=== PATIENT | male | born 1980 | race Caucasian/White ===

== ENCOUNTER 2020-12-04 17:39 | Inpatient (IN) | payer OTHER ==
[~2020-12-04] VITALS: Ht 182.9 cm; Wt 138.1 kg
--- NOTE | ~2020-12-04 | EMS ---
[facility] [address] [place] [address] EMS Patient Care Report Name: ROSS JOHNSON Room #: 243-P ADM IN M.R.#: [id number] Admission: 12/04/20 Attend Phys: Jose Lombardo MD Discharge: Date of : 76 Report #: [id number] THIS REPORT FOR: //name// Report Transmitted: 12/05/2020 06:49 EMS Care Summary [facility] MED-ACT Incident [id number] @ 12/04/2020 16:54 Incident Location [address] [place] [address] Patient ROSS JOHNSON Male, 40 Years 1980 Patient Address [address] [place] [address] Patient History Tracheostomy,Ventilator dependent,Novel Coronavirus (COVID-19), Patient Allergies No known allergies, Patient Medications Heparin, Morphine, Ativan, Chief Complaint Acute dyspena Disposition Transported No Lights/[place] Reason Breathing Problem Transported To [facility] Narrative Dispatched code one on a difficulty breathing. Arrived to meet doctor in hallway who began to give report but got irritated with medic before walking off and not finishing hand off or answering all of medics questions. ATF Pt [facility] [address] [place] [address] EMS Patient Care Report Name: ROSS JOHNSON Room #: 243-P [facility] IN Aarti#: [id number] Admission: 12/04/20 Attend Phys: Jose Lombardo MD Discharge: Date of : 76 Report #: [id number] laying supine in bed, on a ventilator via trach and obviously still struggling to breathe (very sweaty, breathing very fast despite the ventilator, rapid and shallow expiration with prolonged inspiration phase). Pt skin color was appropriate for race/warm/sweaty (no signs of cyanosis in face or hands), Pt is non verbal but could mouth words and make hand signs, appeared to be A&Ox4, answering questions appropriately. Staff affirm; About an hour before calling 911 Pt began to have acute SOB with a sudden onset. He had been off the vent for four days but they put him back on it for this acute episode. He has his own raspatory drive but the ventilator is assisting him and making him more comfortable. His condition is due to COVID which he contracted in September, this caused him to have a trach placed and be ventilated. He has not completely recovered and is at the facility for rehab. Otherwise no significant Hx was reported. Pt denies c/p or any cardiac Hx. Pt was sheet lifted onto stretcher where he was buckled in. He was then switched to a BVM and EMS O2 before being brought to MICU. Pt was transported with three medics in the back, fire trailer tank truck driver. In route Pt remained stable but was obviously getting tired and loosing raspatory drive. Treatments and assessments performed in route, vital signs did not significantly improved but did not decline either. Upon arrival Pt was still breathing spontaneously but was being assisted more then the start of the encounter. Care was transferred to doctor and Pt was left in ED receiving additional care. Initial Vitals @17:15P: 146, @17:35P: 149,R: 46,BP: 115/86,EtCO2: 23,SpO2: 84, @17:25P: 144,R: 41,BP: 165/90,Temp: 98.2F,EtCO2: 27,SpO2: 86, @17:12P: 150,R: 38,BP: 154/104,Pain: 0/10,GCS: 15,Revised Trauma: 11, Impression Acute Respiratory Distress (Dyspnea) Procedures @17:1512-Lead ECGSucceeded@17:20Manual Airway Response: Unchanged@17:20Oxygen FlowRate: 25 Device: Bag Valve Mask (BVM) Response: UnchangedSucceeded@17:30Normal Saline (.9% NaCl) 10cc (20 ga) Site: Antecubital-LeftResponse: UnchangedSucceeded@17:03Normal Saline (.9% NaCl) 0cc () Site: Other Central (PICC, Portacath, Not Listed)Response: Unchanged Timeline 16:52,Call Received 16:52,Psap Call 16:54,Dispatched 16:55,En Route 17:01,On Scene 17:02,[place] [address] EMS Patient Care Report Name: ROSS JOHNSON Room #: 243-P ADM IN M.R.#: [id number] Admission: 12/04/20 Attend Phys: Jose Lombardo MD Discharge: Date of : 76 Report #: [id number] 17:03,Normal Saline (.9% NaCl) 0cc Site: Other Central (PICC, Portacath, Not Listed),Response: Unchanged 17:12,BP: 154/104 M,PULSE: 150,RR: 38 R,SPO2: Ox,ETCO2: ,BG: ,PAIN: 0,GCS: 15, 17:15,12-Lead ECG,Succeeded, 17:15,BP: / M,PULSE: 146,RR: R,SPO2: Ox,ETCO2: ,BG: ,PAIN: ,GCS: , 17:20,Manual Airway Response: Unchanged 17:20,Oxygen FlowRate: 25 Device: Bag Valve Mask (BVM) Response: UnchangedSucceeded, 17:25,BP: 165/90 M,PULSE: 144,RR: 41 R,SPO2: 86 Ox,ETCO2: 27 ,BG: ,PAIN: ,GCS: , 17:25,Depart Scene 17:30,Normal Saline (.9% NaCl) 10cc 20 ga Site: Antecubital-Left,Response: UnchangedSucceeded, 17:35,BP: 115/86 M,PULSE: 149,RR: 46 R,SPO2: 84 Ox,ETCO2: 23 ,BG: ,PAIN: ,GCS: , 17:36,At Destination 18:10,Call Closed Disclaimer v1.1 Copyright 2020 [employer] This EMS Care Summary contains data elements from the applicable legal record (which may be displayed differently). It is designed to provide pertinent information for the following purposes: continuity of care, clinical quality, and state data reporting. The complete legal record is available to ED staff and administrators of the receiving hospital in [address] Patient Tracker. All data is provided "as is."
[2020-12-04 17:42] VITALS: BP 121/71
[2020-12-04 18:11] LABS: BE(vivo) -0.4 mmol/L (-2 to +3); HCO3 25.2 mmol/L (22.0-26.0); PCO2 44.6 mmHg (35.0-45.0); PO2 59.7 mmHg (80.0-100.0); sO2 90.1 % (92.0-98.0)
[2020-12-04 18:16] LABS: HEMATOCRIT 43.3 % (42.0-52.0); HEMOGLOBIN 14.2 gm/dL (14.0-18.0); MCH 29.6 pg (26.0-34.0); MCHC 32.9 g/dL (28.0-37.0); PLATELET COUNT 349 thou/uL (150-400); RBC 4.81 mil/uL (4.50-6.00); RDW 16.4 % (10.5-14.5); WBC 21.6 thou/uL (4.0-11.0)
[2020-12-04 18:29] LABS: CALCIUM 9.4 mg/dL (8.5-10.1); CREATININE 0.7 mg/dL (0.7-1.3); POTASSIUM 4.5 mmol/L (3.5-5.1)
[2020-12-04 18:40] LABS: ABSOLUTE NEUTROPHILS 18.1 thou/uL (1.4-8.2)
[2020-12-04 18:41] LABS: ANISOCYTOSIS 1+
[2020-12-04 18:55] LABS: APTT 30.9 Seconds (24.5-32.8); INR 1.1; PROTIME 11.4 Seconds (9.3-11.4)
[2020-12-04 21:19] LABS: BE(vivo) 0.3 mmol/L (-2 to +3); HCO3 24.5 mmol/L (22.0-26.0); PCO2 38.3 mmHg (35.0-45.0); PO2 58.8 mmHg (80.0-100.0); pH 7.424 (7.360-7.450); sO2 91.2 % (92.0-98.0)
[2020-12-04 21:49] VITALS: BP 139/89
--- NOTE | 2020-12-04 23:00 | NUR ---
MOTHER CONTACTED AT 2114, INFORMED ABOUT IR PROCEDURE.
[2020-12-04 23:56] VITALS: BP 134/96
[2020-12-05] VITALS (54 sets, daily range): BP systolic 100–148; BP diastolic 66–98
[2020-12-05 01:46] LABS: HEMOGLOBIN 12.2 gm/dL (14.0-18.0); MCHC 31.2 g/dL (28.0-37.0); MCV 89.7 fL (80.0-100.0); RBC 4.35 mil/uL (4.50-6.00); RDW 16.5 % (10.5-14.5); WBC 20.8 thou/uL (4.0-11.0)
[2020-12-05 01:52] LABS: INR 1.16; PROTIME 12.6 Seconds (10.5-12.1)
[2020-12-05 01:53] LABS: ALBUMIN 2.8 g/dL (3.4-5.0); CALCIUM 8.5 mg/dL (8.5-10.1); CREATININE 0.5 mg/dL (0.7-1.3); TOTAL BILIRUBIN 0.8 mg/dL (0.2-1.0); TOTAL PROTEIN 6.8 g/dL (6.4-8.2)
[2020-12-05] MEDS ORDERED: MELATONIN5 M1 PER TUBE (02:08)
[2020-12-05] MEDS ORDERED: REGLAN 10 MG TA10 MG PO (02:08)
[2020-12-05] MEDS ORDERED: ROXICODONE5 MG PO (02:10)
[2020-12-05] MEDS ORDERED: LORAZEPAM 0.50.5 MG PO (02:14)
[2020-12-05] MEDS ORDERED: LIDOCAINE PAIN1 EACH TOP (02:15)
[2020-12-05] MEDS ORDERED: METOPROLOL TA37.5 MG PER TUBE (02:16)
[2020-12-05] MEDS ORDERED: FAMOTIDINE 20 M20 MG PER TUBE (02:17)
[2020-12-05] MEDS ORDERED: HEPARIN SO5000 UNIT2 SUBQ (02:18)
[2020-12-05] MEDS ORDERED: LEVEMIR100 UNIT/2 SUBQ (02:19)
[2020-12-05] MEDS ORDERED: DIAZEPAM 5 MG5 M1 PER TUBE (02:51)
[2020-12-05 04:57] LABS: BE(vivo) 1.3 mmol/L (-2 to +3); HCO3 25.5 mmol/L (22.0-26.0); PO2 95.8 mmHg (80.0-100.0); pH 7.434 (7.360-7.450); sO2 97.5 % (92.0-98.0)
--- NOTE | 2020-12-05 06:40 | NUR ---
RECEIVED REPORT FROM GARCIA IN IR AT 9335; PT ARRIVED TO UNIT APPRX 1936. PT A&Ox4, ABLE TO MOUTH WORDS ON VENT VIA TRACH, FREQ COUGH W/LIGHT PINK/CLEAR SECRETIONS, ABLE TO SUCTION MOUTH HIMSELF, MOSTLY DECLINES TO BE IN-LINE SUCTIONED. ST IN 130'S GAVE PRN LOPRESSOR. GAVE VALIUM AND TYLENOL VIA PEG FOR ANXIETY/COMFORT. LEFT GROIN SITE CLOSED W/SUTURES AND GAUZE/CLEAR DRESSING; IR TO REMOVE SUTURES ON MONDAY. IVF AND HEPARIN GTT INFUSING; NEXT APTT DUE AT 1000. NO OTHER CONCERNS.
--- NOTE | 2020-12-05 09:48 | EKG ---
[place] [address] [facility] [place] [address] ELECTROCARDIOGRAM REPORT Name: ROSS JOHNSON Room #: 243-P ADM IN M.R.#: [id number] Admission: 12/04/20 Attend Phys: Jose Lombardo MD Discharge: Date of : 76 Report #: [id number] [facility] ED Test Date: 2020-12-04 Test Time: 17:53:06 Pat Name: ROSS JOHNSON Department: Room: 243 Gender: M Special Certificate Dictator: MARKUS : 1980 Requested By: Aury Tovar Order Number: [id number] MD: Oren Victor Measurements Intervals [place] Rate: 145 P: 52 OH: 123 QRS: 60 QRSD: 85 T: -36 QT: 283 QTc: 440 Interpretive Statements Sinus tachycardia Probable left atrial enlargement Nonspecific T abnormalities, inferior leads Borderline ST elevation, anterior leads Artifact in lead(s) I,II,aVR No previous ECG available for comparison Electronically Signed On 12-05-2020 9:47:48 CDT by Oren Victor [email or web address] <ELECTRONICALLY SIGNED> By: Oren Victor MD, [facility] 12/05/20 0947 52 52 Oren Victor MD, FACC /EPI
--- NOTE | 2020-12-05 10:38 | NUR ---
PHYSICAL THERAPY SAYS PT NOT APPROPRIATE FOR OT AT THIS TIME. NO EVAL COMPLETED
--- NOTE | 2020-12-05 19:50 | NUR ---
THIS RN SPOKE TO THE PT'S MOTHER TONO SORTO FROM 912 - 914. SHE WAS UPDATED ON THE PT'S CONDITIONS AND PLAN OF CARE. PT IS NOT PROGRESSING TOWARDS PLAN OF CARE EVIDENCED BY CONTINUED NEED OF VENTILATION FOR OXYGEN SUPPORT. HEPARIN DRIP TO CONTINUE PT'S PLAN OF CARE IS TO CONTINUE NURSING SUPPORT
[2020-12-05 20:44] LABS: URINE BILIRUBIN NEGATIVE (Negative); URINE BLOOD 3+ (Negative); URINE CLARITY SL CLOUDY; URINE COLOR YELLOW; URINE GLUCOSE-RANDOM* NEGATIVE (Negative); URINE KETONES NEGATIVE (Negative); URINE LEUKOCYTES NEGATIVE (Negative); URINE NITRITE NEGATIVE (Negative); URINE PROTEIN (DIPSTICK) NEGATIVE (Negative); URINE SPECIFIC GRAVITY 1.025 (1.005-1.035); URINE UROBILINOGEN 0.2 E.U./dl (0.2-1.0)
[2020-12-05 21:09] LABS: CASTS None Seen /LPF (None Seen); SQUAMOUS 0-3 Few /LPF (0-3); URINE RBC >20 Many /HPF (NONE SEEN); URINE WBC None Seen /HPF (NONE SEEN)
[2020-12-05 21:10] LABS: AMORPHOUS URATES Many /LPF (None Seen); BACTERIA None Seen /HPF (None Seen)
[2020-12-06] VITALS (20 sets, daily range): BP systolic 108–136; BP diastolic 68–85
[2020-12-06 05:36] LABS: GLYCOHEMOGLOBIN (HGB A1C) 6.2 % (4.8-5.6)
--- NOTE | 2020-12-06 06:30 | HC ---
[facility] [place] [address] [place] [address] CONSULTATION Name: ROSS JOHNSON Room #: 243- ADM IN M.R.#: [id number] Admission: 12/04/20 Attend Phys: Jose Lombardo MD Discharge: Date of : 76 Report #: [id number] THIS REPORT FOR: cc: Eduard Landa MD, Christopher B. MD Barry, Joseph W. MD ~ DATE OF SERVICE: 12/05/2020 INFECTIOUS DISEASE CONSULTATION ATTENDING PHYSICIAN: Dr. Lombardo. REASON FOR EVALUATION: Severe pneumonitis in the setting of pulmonary emboli. HISTORY OF PRESENT ILLNESS: Chart was reviewed. The patient was examined. This is a 40-year-old gentleman with a known history of diabetes and hypertension, who was infected with coronavirus in the summer. This led to a severe pneumonitis. He was hospitalized, maintained on ventilatory support and ultimately received echo and a prolonged course. He has been trached, undergone tracheostomy and PEG placement. He was at an acute long-term care facility, seemingly doing better with overall improvement and then developed progressive dyspnea over a short period of time. This prompted a return to acute care hospital, where he was evaluated and was found to have an elevated D-dimer to 24.06. Followup CT showed large central pulmonary emboli including the primary right and left pulmonary artery branches, acts like a saddle embolus. He underwent embolectomy. He is currently in the intensive care unit, again maintained on ventilatory support. In addition to the evidence of embolus, there was noted to be bilateral pulmonary infiltrates, felt to be consistent with pneumonitis. He did have followup coronavirus testing, which was negative. He was started empirically on combination therapy with cefepime and vancomycin. Currently, again maintained on ventilator, FiO2 100%. He does awaken, admits to discomfort and low-grade temperature elevation. At this point, he does not require need for pressor support. ALLERGIES: LISTED TO SUCCINYLCHOLINE. MEDICATIONS: Include guaifenesin, famotidine, cefepime, vancomycin, lorazepam, diazepam, p.r.n. analgesics, antiemetics. PAST MEDICAL HISTORY: As described above, diabetes mellitus, hypertension, critical illness myopathy. SOCIAL HISTORY: Available in chart. REVIEW OF SYSTEMS: Limited. [address] [address] CONSULTATION Name: ROSS JOHSNON Room #: [facility] IN M.R.#: [id number] Admission: 12/04/20 Attend Phys: Jose Lombardo MD Discharge: Date of : 76 Report #: [id number] PHYSICAL EXAMINATION: GENERAL: He does arouse, seemed to be tracking, ____ ascertain his orientation, some yihd-pp-yjgszgri distress. VITAL SIGNS: Temperature 99.6, pulse 113, respirations 20, blood pressure 138/78. SKIN: Warm, dry, no rashes. HEENT: Normocephalic. Extraocular muscles intact. NECK: Tracheostomy in place. LUNGS: Scattered coarse breath sounds. HEART: Distant, tachycardic. Appears to be regular. I do not appreciate a murmur. ABDOMEN: Distended, somewhat firm. No peritoneal signs. GENITOURINARY AND RECTAL: Deferred. LABORATORY DATA: Blood cultures sterile thus far. Venous Doppler of lower extremity, bilateral DVT with partial thrombus of the common femoral vein and main femoral vein on the right and complete thrombus of the popliteal vein on the right. Most recent ABG: His pH is 7.434, pCO2 of 39.0, pO2 of 95.8, FiO2 100%. Electrolytes: Sodium 137, potassium 4, chloride 101, bicarbonate is 26, anion gap of 10, BUN and creatinine 11 and 0.5, glucose 151, albumin ____, total protein 6.8, PT of 12.6, INR of 1.16. CBC: White count of 20.8, H and H 12.2 and 39.0, platelets of 288. Procalcitonin 0.09. ASSESSMENT AND PLAN: Large pulmonary embolus, complicated by respiratory failure and evidence of bilateral pneumonitis, slightly difficult to ascertain, certainly at risk for aspiration. I think it is reasonable to continue empiric therapy, presumed since he has been hospitalized for an extended period of time, could be resistant to organisms. We will check some screening including sputum culture, MRSA surveillance, pneumococcal, urinary antigen. He certainly is critically ill and maintains requirement for ICU level support. Continue efforts to wean, so he should benefit from the embolectomy. He remains critically ill. Monitor expectantly. <ELECTRONICALLY SIGNED> By: Nagi Schulte MD 12/06/20 0630 0752 0818 Nagi Schulte MD /nt
--- NOTE | 2020-12-06 08:07 | 2DMMODE ---
[facility] [place] [address] 2 D/M-MODE ECHOCARDIOGRAM Name: ROSS JOHNSON Room #: 243-P ADM IN M.R.#: [id number] Admission: 12/04/20 Attend Phys: Jose Lombardo MD Discharge: Date of : 76 Report #: [id number] THIS REPORT FOR: cc: Eduard Landa MD, Christopher B. MD Santiago, Patrick MD [facility] ~ APPROVED REPORT Study performed: 12/05/2020 09:07:14 EXAM: Comprehensive 2D, Doppler, and color-flow Echocardiogram Patient Location: In-Patient Room #: 243 BSA: 2.47 HR: 114 bpm BP: 135/78 mmHg Rhythm: Tachycardia Other Information Study Quality: Fair Risk Factors: Cardiac Risk Factors: HTN Indications Pulmonary Embolism Diabetes Dyspnea Hypertension/HDD Hx Covid ARF 2D Dimensions IVSd: 12.67 (7-11mm) LVOT Diam: 21.91 (18-24mm) LVDd: 35.30 mm PWd: 14.60 (7-11mm) Ascending Ao: 32.83 (22-36mm) LVDs: 24.33 (25-40mm) Left Atrium: 25.15 (27-40mm) Aortic Root: 30.83 mm LV Single Plane 4CH: 46.41 % LV Single Plane 2CH: 42.03 % Volumes [facility] [address] [place] [address] 2 D/M-MODE ECHOCARDIOGRAM Name: ROSS JOHNSON Room #: 243-P ADM IN M.R.#: [id number] Admission: 12/04/20 Attend Phys: Jose Lombardo MD Discharge: Date of : 76 Report #: [id number] Left Atrial Volume (Systole) Single Plane 4CH: 25.05 mL Single Plane 2CH: 44.12 mL Biplane LA Volume: 41.00 mL LA ESV Index: 17.00 mL/m2 Aortic Valve AoV Peak Momo.: 1.65 m/s AO Peak Gr.: 11.04 mmHg LVOT Max P.80 mmHg LVOT Max V: 1.30 m/s LETY Vmax: 2.99 cm2 Mitral Valve E/A Ratio: 1.0 MV Decel. Time: 1356.56 ms MV E Max Momo.: 0.48 m/s MV A Momo.: 0.50 m/s MV PHT: 393.40 ms Pulmonary Valve PV Peak Momo.: 1.00 m/s PV Peak Gr.: 4.04 mmHg Pulmonary Vein P Vein A: 0.31 m/s P Vein A Dur.: 120.0 msec Tricuspid Valve TR Peak Momo.: 1.51 m/s RAP Estimate: 10.00 mmHg TR Peak Gr.: 9.14 mmHg RVSP: 19.00 mmHg Left Ventricle The left ventricle is normal size. There is normal LV segmental wall motion. Mild concentric left ventricular hypertrophy. Left ventricular systolic function is mildly decreased. LVEF is 45-50%. This study is not technically sufficient to allow evaluation of the LV diastolic function. Right Ventricle Right ventricle is dilated. Right ventricle is mildly hypokinetic. Atria The left atrium size is normal. The right atrium size is normal. Aortic Valve The aortic valve is normal in structure. No aortic regurgitation is present. There is no aortic valvular stenosis. [facility] [address] [place] [address] 2 D/M-MODE ECHOCARDIOGRAM Name: ROSS JOHNSON Room #: [address] [place] [address] IN M.R.#: [id number] Admission: 12/04/20 Attend Phys: Jose Lombardo MD Discharge: Date of : 76 Report #: [id number] Mitral Valve The mitral valve is normal in structure. There is no mitral valve regurgitation noted. No evidence of mitral valve stenosis. Tricuspid Valve The tricuspid valve is normal in structure. Trace to mild tricuspid regurgitation. PAP 19 mmHg, RVSP may be underestimated by Doppler of TR jet. Pulmonic Valve The pulmonary valve is normal in structure. There is no pulmonic valvular regurgitation. Great Vessels The aortic root is normal in size. IVC is normal in size and collapses <50% with inspiration. Pulmonary artery is dilated. Pericardium There is no pericardial effusion. There is no pleural effusion. <Conclusion> Normal left ventricular size with mild concentric hypertrophy Ejection fraction 45-50% Right ventricle mildly dilated/mildly hypokinetic Normal atrial size Normal aortic/mitral valve structure and function Trace tricuspid valve insufficiency Pulmonary systolic pressure estimated at 19 mmHg Technically difficult study with pulmonary artery appears to be mildly dilated No pericardial effusion Normal aortic root size. <ELECTRONICALLY SIGNED> By: Oren Victor MD, FACC 12/06/20805 5 5 Oren Victor MD, FACC /INF
--- NOTE | 2020-12-06 08:43 | NUR ---
SPOKE TO MOTHER, TONO SORTO, AT 0843. UPDATE GIVEN. WILL CONTINUE TO MONITOR PT.
--- NOTE | 2020-12-06 11:04 | NUR ---
ASSUMED CARE OF PT AT 0700.
--- NOTE | 2020-12-06 18:32 | NUR ---
ATTEMPTED TO TURN AND CLEAN PT MULTIPLE TIMES THROUGHOUT SHIFT. PT REFUSED THESE CARES FROM MULTIPLE STAFF MEMBERS.
--- NOTE | 2020-12-06 18:38 | NUR ---
SPOKE TO PT MOTHER PER REQUEST AT 1645. UPDATED ON PT STATUS AND ANSWERED ALL QUESTIONS.
[2020-12-06 23:24] LABS: ABSOLUTE NEUTROPHILS 8.8 thou/uL (1.4-8.2); BASOPHILS 0.3 % (0.0-2.0); EOSINOPHILS 0.1 % (0.0-3.0); HEMATOCRIT 29.3 % (42.0-52.0); LYMPHOCYTES 2.8 % (24.0-44.0); MCH 29.1 pg (26.0-34.0); MONOCYTES 1.9 % (1.0-8.0); POLYS 94.9 % (36.0-66.0); RBC 3.22 mil/uL (4.50-6.00); WBC 9.3 thou/uL (4.0-11.0)
[2020-12-06 23:28] LABS: HEMOGLOBIN 9.4 gm/dL (14.0-18.0); PLATELET COUNT 173 thou/uL (150-400)
[2020-12-07] VITALS (13 sets, daily range): BP systolic 112–160; BP diastolic 65–86
[2020-12-07 05:34] LABS: HEMATOCRIT 26.7 % (42.0-52.0); HEMOGLOBIN 8.9 gm/dL (14.0-18.0); MCH 29.7 pg (26.0-34.0); MCHC 33.2 g/dL (28.0-37.0); MCV 89.6 fL (80.0-100.0); RBC 2.98 mil/uL (4.50-6.00); WBC 6.5 thou/uL (4.0-11.0)
--- NOTE | 2020-12-07 12:03 | NUR ---
Chart review. Cm visited with matilde, he is able to mouth words, he has requested speaker value. He came in from the [facility], Covid + and ecmo in september 2020, then dc to the [facility] lt, was reported he did not want to go back to the [facility] but after going over the other location, he [facility] to stick [facility] are to far to drive for his mom sabino. Trach/peg. He was eating by mouth and peg prn. Prior to covid, he was independent, live at home, independent, no dme, manage own medication and drive vehicle. Updates sent to the [facility]. Will cont following as needed for dc needs.
--- NOTE | 2020-12-07 13:20 | NUR ---
REPORT RECIEVED FROM DAVID HOOD.
[2020-12-08] VITALS (20 sets, daily range): BP systolic 123–158; BP diastolic 68–88
[2020-12-08 08:22] LABS: BASOPHILS 0.1 % (0.0-2.0); HEMATOCRIT 27.5 % (42.0-52.0); HEMOGLOBIN 8.8 gm/dL (14.0-18.0); LYMPHOCYTES 7.4 % (24.0-44.0); MCH 29.2 pg (26.0-34.0); MCHC 31.9 g/dL (28.0-37.0); MCV 91.6 fL (80.0-100.0); PLATELET COUNT 183 thou/uL (150-400); POLYS 88.5 % (36.0-66.0); RDW 16.4 % (10.5-14.5); WBC 7.9 thou/uL (4.0-11.0)
[2020-12-08 08:40] LABS: CALCIUM 8.4 mg/dL (8.5-10.1); CREATININE 0.4 mg/dL (0.7-1.3); POTASSIUM 3.6 mmol/L (3.5-5.1)
--- NOTE | 2020-12-08 16:10 | NUR ---
LEFTY faxed referral to [facility] for review. Notified [facility] liaison, Zohra, of info being sent. Will need insurance auth from the [place] for readmission to [facility]. LEFTY is following to assist as needed with discharge planning.
--- NOTE | 2020-12-08 18:00 | NUR ---
PT ORIENETED TO ROOM AND UNIT. PT MOVBED FROM 210 TO ROOM 217. PT REMAINS ON TRACH SHIELD DURING DAY AND VENTILATOR AT NIGHT. CONTINOUS PULSE OXIMETER AT BEDSIDE AND SUCTION SET UP. WILL CONTINUE TO ASSESS.
--- NOTE | 2020-12-08 18:11 | NUR ---
CALLED REPORT TO ROSS HOOD AT 8573. PT TRANSFERED TO CCU ROOM 210 AT 1733.
[2020-12-09 04:45] VITALS: BP 147/82
[2020-12-09 07:50] VITALS: BP 142/77
--- NOTE | 2020-12-09 08:01 | NUR ---
ASSESSMENT CHARTED. CONTINUES VENT WITH TRACH THROUGH THE NIGHT. ENTERAL FEEDING CONTINUE WITH NO RESIDUAL. HEPARIN INFUSING WELL, NO S/S OF BLEEDING. NO REACTION TO CEFAPINE INFUSION. CONTINUE POC.
[2020-12-09 11:30] VITALS: BP 159/83
--- NOTE | 2020-12-09 14:39 | NUR ---
LEFTY reviewed chart and spoke with nursing and attending physician. Pt was transferred to CCU from ICU. Pt is on 7L via NC and on trach shield. Pt requires ventilator support at nighttime. LEFTY met with pt to discuss discharge plan. Pt states he does not want to return to [facility]. Pt requests referrals to be sent to both [facility] and [facility] for review. Pt states his sister is coming to today and she is helping with researching the two LTACs and may tour the facilities. SW discussed process for referral, evaluation and need [facility] from the [facility]. Pt verbalized understanding. Pt also asking for assistance with his disability/FMLA claim through his employer. LEFTY contacted [employer], who is processing pt's short-term disability claim through his employer. Claim# [id number] provided. . Pt gave consent for LEFTY to send his clinical info to [facility]. LEFTY placed call to [facility] and spoke with Pratima, who states they are requesting clinical info from pt's current hospital stay. LEFTY faxed requested clinical information to [facility] for review. Contact info for LEFTY provided. Received fax confirmation. LEFTY faxed referrals to [facility]. LEFYT notified liaisons of both referrals. Pt requests to speak with both LTACs prior to making a decision. LEFTY updated attending physician. LEFTY is following to assist as needed with discharge planning.
[2020-12-09 17:03] VITALS: BP 148/81
[2020-12-09 19:38] VITALS: BP 142/84
--- NOTE | 2020-12-10 03:52 | NUR ---
ASSUMED PT CARE AT 1900, PT IS AWAKE, ALERT AND ORIENTED, SISTER AT BEDSIDE, ASSESSMENTS COMPLETED AND CHARTED, PT IS OFF TF, TOLERATING DIET, DENIES PAIN OR SOB, PT ON VENT THROUGH THE NIGHT, O2SATS STABLE, SUCTIONED PRN, PTS VSS, NO ACUTE DISTRESS NOTED, PROGRESSING WELL TOWARDS POC
[2020-12-10 04:46] VITALS: BP 144/85
[2020-12-10 05:35] LABS: HEMATOCRIT 31.3 % (42.0-52.0); HEMOGLOBIN 10.1 gm/dL (14.0-18.0); MCHC 32.4 g/dL (28.0-37.0); MCV 89.6 fL (80.0-100.0); RBC 3.49 mil/uL (4.50-6.00); RDW 16.1 % (10.5-14.5)
[2020-12-10 08:00] VITALS: BP 146/94
--- NOTE | 2020-12-10 08:41 | NUR ---
VASCULAR ACCESS NURSE ROUNDING. THIS PATIENT HAS A PICC ACCESS. HE IS NOW ON ONLY 2 IVP MEDS. SUGGEST REMOVAL OF PICC AND PERIPHERAL IV PLACEMENT IF LINE IS NO LONGER NECESSARY TO DECREASE THE RISK OF A CENTRAL LINE BLOOD STREAM INFECTION
[2020-12-10 16:00] VITALS: BP 125/68
--- NOTE | 2020-12-10 16:05 | NUR ---
Dc planning visit made at bedside. Pt is a&ox4 and able to discuss care needs and options. He did visit with the [facility] liason who came earlier today and the [facility] liason who spoke with him via phone. His sister is in town to tour both as well to help him decide his preference. She will be in later this evening to discuss. CM requested pt provide preference in the am to facilitate geting insurance auth in place and making sure a bed is available as ltac beds are very tight. Pt stated his understanding. The pt is on a couple of liters and humidified air with ongoing vent at noc. 5N evaluated as well but pt would need to be off the vent to be a candidate for acute rehab. Continued LTAC stay for vent weaning recommended by the care team. Pt states his understanding. Support provided. Will follow. Both [facility] they can accept pending ins auth and both would likely have a bed open within a few days.
[2020-12-10 19:31] VITALS: BP 120/63
--- NOTE | 2020-12-10 19:43 | NUR ---
ASSESSMENT CHARTED - PT JUSTINO MOD AMOUNT OF DIET AND DRINKING WELL. NO CO'S OF PAIN OR NASUEA. MEDS PER MAR - GIVEN SSI PER SCALE PRN. PT WITH SPEAKING VALVE PRESENT IN TRACH - ABLE TO MAKE NEEDS KNOWN. PT GOES BACK ON VENT IN THE EVENING/NOC - ORDERES WRITTEN TO WEAN PATIENT OFF VENT. SEEN BY LIAVICKY FROM [facility] THIS TODAY- SEEN BY [facility]. SISTER INTO VISIT THIS EVENING. NO CO'S AT THE PRESENT TIME.
[2020-12-11 05:35] VITALS: BP 147/89
--- NOTE | 2020-12-11 07:57 | NUR ---
pt is awake, alert and oriented, denies pain, sr on tele, remains on vent at night on 60% fio2, c/o being hot and cold, afebrile, vss, assessments as charted, no acute distress noted, passed on report to day nurse
[2020-12-11 08:00] VITALS: BP 141/89
--- NOTE | 2020-12-11 09:57 | NUR ---
Pt has selected [facility]. [facility] advised. They will submit for ins auth today and advise on next available bed. Pt is dc ready. Will need [facility] arranged for trach/o2 transport. [facility] form is completed on the chart. Chart copy requested.
[2020-12-11 12:00] VITALS: BP 134/82
[2020-12-11 15:30] VITALS: BP 132/90
[2020-12-11] MEDS ORDERED: JARDIANCE10 MG PO (16:04)
[2020-12-11 20:42] VITALS: BP 136/76
[2020-12-12] VITALS (8 sets, daily range): BP systolic 130–143; BP diastolic 87–95
--- NOTE | 2020-12-12 13:56 | NUR ---
WAS NOTIFIED BY KARLA HOOD 2N [facility] BENCH WAS WANTING TO KNOW IF [facility] WAS GOING TO HAVE BED AVAILABLE AT ALL THIS WEEKEND. I, REACHED OUT TO [facility] SPOKE WITH APARNA IN ADM SHE WILL NOT HAVE A BED AVAILABLE.
[2020-12-13 04:00] VITALS: BP 135/82
[2020-12-13 05:29] VITALS: BP 155/101
[2020-12-13 08:00] VITALS: BP 124/91
[2020-12-13 12:10] VITALS: BP 136/93
--- NOTE | 2020-12-13 15:15 | NUR ---
PT IS AXOX4, PLEASANT; VSS, AFEBRILE, SR/ST ON MONITOR. C/O PAIN IN LOWER BACK AREA FROM BED. POSITIONING, WEDGES, AND RX TYLENOL GIVEN WITH PARTIAL RELIEF. PT AWAITING PLACEMENT IN LT[facility]; CURRENTLY AWAITING BED. WILL CONTINUE PO ABX. TAPERING PO PREDNISONE. PT TOLERATING VENT AT NIGHT, USING SPEAKING VALVE DURING THE DAY. HIGH FALL PRECAUTIONS IN PLACE. NO CONCERNS AT THIS TIME.
[2020-12-13 15:40] VITALS: BP 128/90
[2020-12-13 20:05] VITALS: BP 134/83
[2020-12-14 04:45] VITALS: BP 155/102
[2020-12-14 06:42] LABS: ALBUMIN 3.1 g/dL (3.4-5.0); CREATININE 0.5 mg/dL (0.7-1.3); MAGNESIUM 1.9 mg/dL (1.8-2.4); POTASSIUM 3.4 mmol/L (3.5-5.1); TOTAL BILIRUBIN 0.6 mg/dL (0.2-1.0); TOTAL PROTEIN 7.3 g/dL (6.4-8.2)
[2020-12-14 07:00] VITALS: BP 128/82
--- NOTE | 2020-12-14 08:12 | NUR ---
SLEPT MOST OF SHIFT. ON VENT FROM 2309 AND REMAINS ON. TOLERATED WELL. CONTINUE TO ASSES DERRICK. ASSIST TO TURN NEEDED.
[2020-12-14 12:00] VITALS: BP 117/89
[2020-12-14 15:30] VITALS: BP 134/91
--- NOTE | 2020-12-14 16:30 | NUR ---
No bed avail at [facility] today. Updated patient. Met and sp with liason at [facility]. Faxed clinical update.
--- NOTE | 2020-12-14 20:12 | NUR ---
PT IS AXOX4, PLEASANT; VSS, AFEBRILE, ST ON THE MONITOR. PT DENIES PAIN, NO DISCOMFORT OR ABDOMINAL DISTRESS. PT HAS NOT HAD BM SINCE 12/05. REFUSED BM MEDICATIONS FOR POTENTIAL D/C. CASE MGMT CONSULTED. [facility]TER PRESENT TO ENSURE TRANSITION GOES WELL. POC IS TO D/C PT TO [facility] ONCE BED IS AVAILABLE, POSS 12/15. FALL PRECAUTIONS IN PLACE. NO CONCERNS AT THIS TIME.
[2020-12-14 20:25] VITALS: BP 138/94
[2020-12-15 05:23] VITALS: BP 158/106
[2020-12-15 08:00] VITALS: BP 147/97
--- NOTE | 2020-12-15 08:09 | NUR ---
VESTAMD CARE OF PT AT 1900HRS. PT IS AOX4 AND LETS NEEDS BE KNOWN. FALL PRECAUTION IN PLACE. PT DENIED PAIN OR NAUSEA. TRACH MASK WHILE AWAKE AND VENT WHILE SLEEPING. TRACH SUCTIONED PRN. JONES IN PLACE AND PATIENT. PT SLEPT PART OF THE SHIFT. VSS AND NO S/S OF ACUTE DISTRESS. REPORT GIVEN TO AM RN.
[2020-12-15 11:40] VITALS: BP 134/96
[2020-12-15] MEDS ORDERED: PREVACID 15 MG15 M4 DISSOLVE (12:33)
[2020-12-15] MEDS ORDERED: PREDNISONE 20 M20 MG PO (12:33)
[2020-12-15] MEDS ORDERED: XARELTO15 MG PO (12:33)
[2020-12-15] MEDS ORDERED: MIRALAX17 GM PO (12:33)
[2020-12-15] MEDS ORDERED: MUCINEX600 MG PO (12:33)
[2020-12-15] MEDS ORDERED: IPRAT-ALBUT 0.5-3 ML INH (12:33)
[2020-12-15] MEDS ORDERED: HUMALOG100 UNIT/1 SUBQ (12:33)
[2020-12-15] MEDS ORDERED: ACETAMINOPHEN325 M1 PO (12:33)
[2020-12-15] MEDS ORDERED: TESSALON PERLE100 MG PO (12:33)
[2020-12-15] MEDS ORDERED: STIMULANT LAXA1 EACH PO (12:33)
--- NOTE | 2020-12-15 15:48 | NUR ---
PT AFEBRILE, ADEQUATE UOP, NO BM, APPROPRIATE APPETITE. PT STABLE ON TRACH SHIELD. PEG TUBE IN PLACE, UNUSED. GROIN SITES ON LEFT AND RIGHT ARE C/D/I, SOFT NON-TENDER, BRUISING AROUND PANNUS. PLAN IS TO DC TO [facility] TODAY VIA AMBULANCE AT 1730. RU-PICC IN PLACE AND FUNCTIONING WELL. PT HAS BEEN THOUROUGHLY UPDATED AND EDUCATED ON PT CONDITION AND POC. PT SLOWLY PROGRESSING TOWARDS POC. REPORT CALLED TO OLESYA HOOD AT [facility].
[2020-12-15 16:00] VITALS: BP 123/84
--- NOTE | 2020-12-15 19:02 | NUR ---
Patient accepted to [facility] with bed avail today. Faxed orders. Called [facility] who reports call [facility] for transport due to high liter flow and patient does not want o be bagged for transport. Sp with REBECCA who reports patient needs transport arrange through [facility]. Sp with [employer] at [facility] who reports [facility] should arrange transport. It will then be part of [facility] bill that [facility] is covering. Acacia called [facility] to inform. Arranged [facility] for 1729. Chart copied. dc orders faxed. RN called report. Patient aware of dc and timeframe and notified family
== END 2020-12-15 17:30 | DRG 853 ==
LOC: ER 17:39 → 2N 20:53 → EROBS 20:53 → ICU 20:53 → 2N 12-08 17:21
PROVIDERS: Emergency Medicine; Hospitalist; Internal Medicine; Internal Medicine Pulmonary Disease; Nurse Practitioner Family; ADMIT Hospitalist; ATTEND Hospitalist
DX: A41.9 Sepsis, unspecified organism (principal); J18.9 Pneumonia, unspecified organism; I26.99 Other pulmonary embolism without acute cor pulmonale; J96.21 Acute and chronic respiratory failure with hypoxia; E46 Unspecified protein-calorie malnutrition; I82.403 Acute embolism and thrombosis of unspecified deep veins of lower extremity, bilateral; Z20.822 Contact with and (suspected) exposure to COVID-19; Z79.899 Other long term (current) drug therapy; E11.65 Type 2 diabetes mellitus with hyperglycemia; Z79.4 Long term (current) use of insulin; D63.8 Anemia in other chronic diseases classified elsewhere; Z88.8 Allergy status to other drugs, medicaments and biological substances; I10 Essential (primary) hypertension
CPT/HCPCS: 10078; 10081; 58598

== ENCOUNTER 2020-12-28 11:53 | Inpatient (IN) | payer OTHER ==
[~2020-12-28] VITALS: Ht 182.9 cm; Wt 116.5 kg
[~2020-12-28 11:53] MED LIST: ACETAMINOPHEN325 M1 PO; DIAZEPAM 5 MG5 M1 PER TUBE; FAMOTIDINE 20 M20 MG PER TUBE; HEPARIN SO5000 UNIT2 SUBQ; HUMALOG100 UNIT/1 SUBQ; IPRAT-ALBUT 0.5-3 ML INH; JARDIANCE10 MG PO; LEVEMIR100 UNIT/2 SUBQ; LIDOCAINE PAIN1 EACH TOP; LORAZEPAM 0.50.5 MG PO; MELATONIN5 M1 PER TUBE; METOPROLOL TA37.5 MG PER TUBE; MIRALAX17 GM PO; MUCINEX600 MG PO; PREDNISONE 20 M20 MG PO; PREVACID 15 MG15 M4 DISSOLVE; REGLAN 10 MG TA10 MG PO; ROXICODONE5 MG PO; STIMULANT LAXA1 EACH PO; TESSALON PERLE100 MG PO; XARELTO15 MG PO
--- NOTE | 2020-12-28 14:35 | NUR ---
PATIENT TESTED AT [facility] PRIOR TO D/C FOR COVID 19 AND TEST RESULTS WERE NEGATIVE ON 12/28/20.
--- NOTE | 2020-12-28 16:27 | NUR ---
PT ARRIVED TO UNIT ABOUT 1550 FROM [facility]IA [facility]. PT ALERT AND ORIENTED. PT HAS OXYGEN ON 2L NC. PT HAS HX OF COVID AND BILATERAL PE AND DVT BILATERAL. PT DOES HAVE A DRY COUGH. PT HERE FOR THERAPY AND GET STRONGER.
[2020-12-28] MEDS ORDERED: TESSALON PERLE100 M1 PO (16:35)
[2020-12-28] MEDS ORDERED: ASCORBIC ACID500 MG PO (16:35)
[2020-12-28] MEDS ORDERED: FAMOTIDINE 20 M20 MG PO (16:36)
[2020-12-28] MEDS ORDERED: MUCINEX600 MG PO (16:39)
[2020-12-28] MEDS ORDERED: HUMALOG100 UNIT/1 SUBQ (16:40)
[2020-12-28] MEDS ORDERED: LEVOFLOXACIN500 MG IV (16:41)
[2020-12-28] MEDS ORDERED: MIRTAZAPINE7.5 MG PO (16:50)
[2020-12-28] MEDS ORDERED: SUPER THERAVIT1 EACH PO (16:51)
[2020-12-28] MEDS ORDERED: PROTONIX40 M2 PO (16:52)
[2020-12-28] MEDS ORDERED: XARELTO15 MG PO (16:53)
[2020-12-28] MEDS ORDERED: XARELTO20 MG PO (16:54)
[2020-12-28] MEDS ORDERED: SALINE NOSE SPR45 ML NASAL (16:56)
[2020-12-28] MEDS ORDERED: SODIUM CHLORIDE20 ML IV PUSH (16:57)
[2020-12-28] MEDS ORDERED: WATER PER TUBE (17:00)
[2020-12-28] MEDS ORDERED: LANTISEPTIC OI113 GM TOP (17:03)
[2020-12-28] MEDS ORDERED: ZINC-22050 MG PO (17:05)
--- NOTE | 2020-12-28 19:29 | NUR ---
AFTER ADMISSION WITH PT PT STATED HE LIVES IN A HOUSE ONE HIS OWN, HE STATED HE HAS NOT BEEN OUT OF BED WITHOUT A LIFT. PT FEET BILATERALY ARE DRY. PT HAS PEG TUBE TO ABD WITH DRY CRUSTY AROUND PEG TUBE. PT STATED HE DOESN'T DRINK WATER VERY MUCH, PT STATED HE DOES LIKE CRANBERRY JUICE IN AM, AND GRAPE JUICE IN [place]. PT DID BRING HIS OWN GRAPE JUICE.
[2020-12-28 20:01] VITALS: BP 137/97
--- NOTE | 2020-12-29 00:01 | NUR ---
PT ALERT AND ORIENTED X 4. 02 ON AT 2L PER NC CONT. NON-PRODUCTIVE COUGH NOTED. PT TAKES MEDS WITH WATER WITHOUT DIFFICULTY. PT DENIES PAIN OR DISCOMFORT. BED ALARM ON FOR SAFETY. PT APPEARS TO BE SLEEPING ON HOURLY ROUNDS.
--- NOTE | 2020-12-29 01:56 | NUR ---
PT C/O INSOMNIA. YUNIOR PRATT NP NOTIFIED AND STATED MELATONIN COULD BE GIVEN AT THIS TIME. PT REFUSED MED.
[2020-12-29 05:39] LABS: HEMATOCRIT 40.4 % (42.0-52.0); MCH 28.9 pg (26.0-34.0); MCHC 32.3 g/dL (28.0-37.0); MCV 89.6 fL (80.0-100.0); RBC 4.51 mil/uL (4.50-6.00); RDW 16.1 % (10.5-14.5); WBC 6.7 thou/uL (4.0-11.0)
[2020-12-29 05:58] LABS: CREATININE 0.6 mg/dL (0.7-1.3); POTASSIUM 3.7 mmol/L (3.5-5.1)
[2020-12-29 07:15] VITALS: BP 133/92
--- NOTE | 2020-12-29 08:05 | NUR ---
Chart review. CM familiar with matilde when he was here from [facility]. Visited with him while he was in the ICU. then dc to [facility] on dec 15. Non vaccinated for covid. Prior to getting covid he was completely independent, lives in apartment with roommate. No dme prior to covid. 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 Mom sabino [phone], stepdaabbye jacobo [phone]. Will cont following as needed for dc needs.
--- NOTE | 2020-12-29 11:30 | NUR ---
ASSUMED CARE AT 0700. PATIENT IS ALERT AND ORIENTED X4. PATIENT CASTANO'S, COMPLIANCE DIRECTOR ARE EQUAL. LUNGS ARE DEMINISHED. CONTINUES ON 02 AT 2L PER N/C. PATEINT HAS OCCASIONAL NON-PRODUCTIVE COUGH. PATIENT HAS G.T. IN HIS LOWER ABD. FLUSHED WITH H2O. ABD IS SOFT WITH BSX4. LAXATIVES GIVEN. UP IN BED FOR BREAKFAST WITH S.T. PATIENT USES URINAL TO VOID DOTTIE COLORED URINE. FALL AND SAFETY PROTOCOLS IN PLACE. C/O BACK PAIN, BUT REFUSED PAIN MED. CONTINUES TO PROGRESS CONTINUES TO PROGRESS TOWARDS D/C GOALS. WILL CONTINUE TO MONITER.
[2020-12-29 15:01] LABS: FOLIC ACID 18.2 ng/mL (8.6-58.9)
[2020-12-29 19:48] VITALS: BP 130/84
--- NOTE | 2020-12-30 01:46 | NUR ---
assumed care approx 1899 evening 12/29. pt lying in bed with head of bed elevated at change of shift. 02 at 2L per n/c. pt with dry, non-productive cough. resp tx as ordered. pt with flat affect. pt took hs meds with his own grape juice tolerating well. urinal at bedside. pt appears to be sleeping soundly in between short bouts of coughing. bed alarm on and call light in reach. will continue to monitor.
[2020-12-30 07:15] VITALS: BP 127/93
--- NOTE | 2020-12-30 08:48 | NUR ---
ASSUMED CARE AT 0700. PATIENT IS ALERT AND ORIENTED X4. PATIENT CASTANO'S, COIN WRAPPING MACHINE OPERATOR ARE EQUAL. LUNGS ARE DEMINISED. CONTINUES ON RESPIRATORY TX. APPETITE IS POOR. PATIENT ENCOURGED TO INCREASE HIS FLUIDS. G.T. PATENT AND INTACT IN HIS LEFT ABD. ABD IS SOFT WITH BSX4. NO BM SINCE THE . PATIENT IS VOIDING DOTTIE COLORED URINE PER URINAL. FALL AND SAFETY PROTOCOLS IN PLACE. DENIES PAIN AT THIS TIME. CONTINUES TO PROGRESS VERY SLOWLY TOWARDS D/C GOALS. WILL CONTINUE TO MONITER.
--- NOTE | 2020-12-30 14:45 | NUR ---
cris notified by community health specialist that he has question about his fmla. cris spoke with yaneth clayton that he needs to call [facility] short term disability to have them fax paper work to cris office for MD to complete so he can get paid while off from work. Will cont following as needed for dc needs.
[2020-12-30 19:47] VITALS: BP 117/82
--- NOTE | 2020-12-31 01:04 | NUR ---
assumed care approx 1899 evening 12/30. pt lying in bed with head of bed elevated at change of shift. 02 at 3L per n/c. pt voiding per urinal at bedside. pt in depressed mood, appears somewhat frustrated and irritable. when asked how therapy went pt stated not good and stated he is tired. pt given much emotional support and encouragement. pt appears to be sleeping soundly at present, sometimes with dry cough. bed alarm on and call light in reach. will continue to monitor.
[2020-12-31 08:00] VITALS: BP 133/89
--- NOTE | 2020-12-31 09:32 | NUR ---
Per pt request, cm contacted his short term disability company [employer] as they are needing a clinical update to continue his claim. They will need regular clinical updates. This is a benefit program through the pt's employer. Clinical update faxed today and confirmation rec'd. Discussed with the unit mngr. She will fax weekly updates to [employer] when she sends weekly updates to the [facility] for continued [facility] of his inpt rehab stay. DC time frame and disposition is uncertain pending his progress. Claim #[id number] (attn to claims with claim number on the cover sheet)
--- NOTE | 2020-12-31 19:43 | NUR ---
ASSUMED CARE TO pT AT SHIFT CHANGED, A/O X 4, PT APPEARS VERY CALM , COOPERATIVE BUT DEMANDING, TAKES MEDS WHOLE WITH GRAPE JUICE THAT HE BROUGHT FROM HOME, ON RA , vss, REFUSED PEG TUBE FLUSH, TRACH SITE WITH BANDAID , CLEAN AND INTACT, ALL FALL PRECAUTIONS MAINTAINED, NO BM DURING THE SHIFT. no NEW CONCERNS. POC TO BE CONT'D
[2020-12-31 19:44] VITALS: BP 126/79
--- NOTE | 2021-01-01 00:12 | NUR ---
PT ALERT AND ORIENTED X 4. 02 ON AT 2L PER NC CONT. NON-PRODUCTIVE COUGH NOTED. PT TAKES MEDS WITH GRAPE JUICE WITHOUT DIFFICULTY. PEG TUBE INTACT. PT C/O PAIN IN LEFT AND RIGHT SIDE. REFUSED PAIN MEDS. STATED HE DOES NOT WANT TO MASK PAIN WITH MEDS. BED ALARM ON FOR SAFETY. PT APPEARS TO BE SLEEPING ON HOURLY ROUNDS.
--- NOTE | 2021-01-01 12:26 | NUR ---
Assumed care to pt at shift change, A/O x 4, pt is very picky in chosing how to be taken care of, had a large BM dark, in color and formed, Occult blood result pending; Pt is stable, comfortbale, c/o pain , PRN analgesics given, remains on 2 l of O2, resp regular and no Resp distress noted, inguinal region with redness and rash , cream applied, 820 urinary output recorded after more than 24 hrs w/o voiding. POC to be cont'd
[2021-01-01 19:34] VITALS: BP 137/88
--- NOTE | 2021-01-02 00:36 | NUR ---
PT ALERT AND ORIENTED X 4. 02 ON AT 2L PER NC CONT. PT C/O PAIN IN HIS LEFT SIDE. REFUSES PAIN MEDS. PEG TUBE INTACT. BED ALARM ON FOR SAFETY. PT APPEARS TO BE SLEEPING ON HOURLY ROUNDS.
[2021-01-02 05:39] LABS: ABSOLUTE NEUTROPHILS 2.6 thou/uL (1.4-8.2); BASOPHILS 1.1 % (0.0-2.0); EOSINOPHILS 9.6 % (0.0-3.0); HEMATOCRIT 40.1 % (42.0-52.0); LYMPHOCYTES 28.4 % (24.0-44.0); MCH 28.9 pg (26.0-34.0); MCHC 32.4 g/dL (28.0-37.0); MONOCYTES 9.4 % (1.0-8.0); PLATELET COUNT 233 thou/uL (150-400); POLYS 51.5 % (36.0-66.0); RDW 15.9 % (10.5-14.5)
[2021-01-02 05:53] LABS: CALCIUM 8.7 mg/dL (8.5-10.1); CREATININE 0.5 mg/dL (0.7-1.3); MAGNESIUM 2.1 mg/dL (1.8-2.4); POTASSIUM 3.6 mmol/L (3.5-5.1)
[2021-01-02 08:00] VITALS: BP 126/86
--- NOTE | 2021-01-02 09:19 | NUR ---
ASSUMED CARE AT 0700. PATIENT IS ALERT AND ORIENTED X4. PATIENT CASTANO'S, ARMORED TRANSPORT SERVICE MANAGER ARE EQUAL. LUNGS ARE COARSE AND DEMINISHED. PATIENT CONTINUES ON 02 AT 2L PER N/C AND RESPIRATORY TX. ABD IS SOFT WITH BSX4. PATIENT HAS G.6. IN HIS LEFT ABD. FLUSHED WITH 150 CC FREE H20. PATIENT IS VOIDING DOTTIE COLORED URINE PER URINAL. FALL AND SAFETY PROTOCOLS IN PLACE. C/O BACK PAIN, BUT REFUSES PRN PAIN MED. CONTINUES TO PROGRESS VERY SLOWLY. VERY LOW ENDUREANCE. PATIENT CONTINUES ON CALORIE COUNT. WILL CONTINUE TO MONITER.
[2021-01-02 19:39] VITALS: BP 125/85
--- NOTE | 2021-01-03 02:20 | NUR ---
assumed care approx 0 evening 01/02. pt lying in bed with head of bed elevated at change of shift. 02 at 2L per n/c. pt with dry, non productive cough. pt took hs meds with his own grape juice. pt prefers to drink juice and refuses hospital water. pt appears to be sleeping soundly. bed alarm on and call light in reach. will continue to monitor.
[2021-01-03 07:15] VITALS: BP 128/90
[2021-01-03 19:20] VITALS: BP 132/90
--- NOTE | 2021-01-03 23:54 | NUR ---
ASSUMED CARE AT 1900. PATIENT IS A&OX4, DENIES SHORTNESS OF BREATH OR PAIN. FLAT AFFECT NOTED. TOLERATED ORAL MEDS WITH PATIENT'S PERSONAL GRAPE JUICE. CONTINUES ON 2L OF OXYGEN VIA NASAL CANNULA. INTERMITTENT NON-PRODUCTIVE COUGH PRESENT, IS ENCOURAGED. FALL PRECAUTIONS IN PLACE, CALL LIGHT WITHIN REACH. WILL CONTINUE TO MONITOR.
--- NOTE | 2021-01-04 13:19 | NUR ---
Nutrition: Calorie count confirms pt meeting 20-30% of needs via oral intake. Over weekend only consumed juice, fruit and glucerna BID each day. No solid foods. Pt aware and able to order meals but has requested same foods daily due to limited tolerance of hospital foods. now not eating these. Mirtazapine started. RD suggests bolus 1 carton Vital 1.5 via PEG if eats < 50% of meal.
[2021-01-04 19:19] VITALS: BP 128/87
--- NOTE | 2021-01-04 19:21 | NUR ---
Assumed pt care at 0700. Pt was alert and oriented x4. Pt have a flat affect. Calm and cooperative with care. Pt continues on O2 at 2L PER nasal cannula. Pt have a G.G in his L ABD. Pt refused to flushing his G.G tube this shift. Refused his Nystatin powder at 9am. AT 8AM pt had 850ml output of urine per urinal assisted by teletypewriter operator. Pt is 1 to 2 person assist with transfers. Continues on calorie count. continent of bowel and bladder this shift. Makes needs known to staff. Took meds whole with cranberry juice, no difficulty noted. Refused to drink water. DR STEVENSON saw pt this shift. Fall precaution in place. Call light within reach. At time pt is watching TV in his room. Will continue to monitor.
--- NOTE | 2021-01-04 21:35 | NUR ---
ASSUMED CARE OF PT AT 1925. PT IS A&OX4. IS ON 2L O2/NC. NO RESPIRATORY DISTRESS, CHEST PAIN, OR DIFFICULTY BREATHING. BREATH SOUNDS ARE DIMINISHED, BUT CLEAR. IS STABLE. DENIES PAIN AT THIS TIME. IS ABLE TO TURN SELF IN BED. IS UP WITH 1 ASSIST, GB. FALL PRECAUTIONS & HOURLY ROUNDING CONTINUED. LABS & VITALS REVIEWED. PT REFUSED 150ML WATER FLUSH PER PEG TUBE TONIGHT & REPORTEDLY ON DAY SHIFT. PT STATED, "I WOULD LIKE FOR IT TO BE DONE AT 1530 AFTER THEAPY, BUT BEFORE DINNER". PT ALSO REFUSED NYSTATIN POWDER. STATED, "I HAD IT THIS MORNING, I DON'T NEED IT NOW". EDUCATION PROVIDED. CALL LIGHT WITHIN REACH. WILL CONTINUE TO MONITOR.
[2021-01-05 07:38] VITALS: BP 143/85
--- NOTE | 2021-01-05 12:31 | HC ---
[facility] [place] [address] CONSULTATION Name: ROSS JOHNSON Room #: 512-P ADM IN M.R.#: [id number] Admission: 12/28/20 Attend Phys: Marino Gallegos MD Discharge: Date of : 76 Report #: [id number] THIS REPORT FOR: cc: Eduard Landa MD, Christopher B. MD Deutch, Neal B. PhD ~ DATE OF SERVICE: 01/03/2021 NEUROBEHAVIORAL STATUS EXAM ATTENDING PHYSICIAN: Marino Gallegos M.D. SUBSTATION ENGINEER: Lefty Sood, PhD CLINICAL PRESENTATION: The patient is a 40-year-old male admitted to [facility] rehabilitation unit for a comprehensive inpatient program. The patient was originally diagnosed with COVID-19 in 09/2020 and hospitalized at [facility]. He underwent ECMO therapy, tracheostomy with PEG placement. The patient was unable to adequately be weaned off ventilation, and was transferred to an LTAC in November. He was admitted to [facility] on 12/04/2020 with shortness of breath and was diagnosed with a large central partially occlusive pulmonary emboli, right greater than left. The patient was also found to have bilateral DVT, started on Xarelto, and then discharged back to the LTAC. The patient continued on trach with nighttime ventilation and slow weaning until this recent admission for inpatient rehab. His assessment on admission to the rehabilitation unit was a critical illness myopathy, massive pulmonary embolism and bilateral lower extremity deep venous thrombosis, status post thrombectomy on 12/04/2020, acute on chronic respiratory failure, status post tracheostomy, methicillin-susceptible Staphylococcus aureus pneumonia, status post antibiotics resolved, dysphagia, status post PEG, recent COVID-19 diagnosed in 09/2020, diabetes mellitus type 2, hypertension and obesity. A complete description of his medical condition and history along with medications can be found in his medical record. Neuropsychological consultation was requested to provide assistance in the assessment of cognitive and emotional status and to provide recommendations and services. Prior to his COVID-19 infection, the patient was living independently in his own home. 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 The patient is an [employer] of three years. He is single and never with one child. His child is living with the child's mother. The patient has 3 siblings. He is a high school graduate. He does not report previous treatment for depression, anxiety or alcohol/drug abuse. TECHNIQUES UTILIZED: Clinical interview, review of medical records, staff consultation, and behavioral observation, mini mental status exam [address] [address] CONSULTATION Name: ROSS JOHNSON Room #: [facility] IN .R.#: [id number] Admission: 12/28/20 Attend Phys: Marino Gallegos MD Discharge: Date of : 76 Report #: [id number] version, clock drawing and verbal fluency assessment (letter and category). EXAMINATION FINDINGS: The patient was alert and cooperative with the assessment. He accurately described events surrounding his admission. There is no evidence of aphasia. Thoughts are logical and goal oriented. There is no evidence of thought disorder. He does not report auditory or visual hallucinations. He describes his symptoms to include diminished appetite, sleep disturbance, persistent cough, reduced energy, poor endurance and muscle weakness. Difficulty with taste is noted. He does not report reduced smell. Anxiety is described primarily at night. Additionally, he has been reported by nursing staff to be refusing recommendation for bladder scanning. His performance on the MMSE 2 standard version is within normal limits with a raw score 28 of 30. He was 3/3 for initial registration, 5/5 for orientation to time and place, and 2/3 for immediate recall of 3 items after a brief time delay and distraction. He was 5/5 for serial sevens, 2/2 for naming, 1/1 for repetition, 3/3 for comprehension. He could read and follow a single command and write a sentence. The patient had difficulty with copying a simple geometric design. Clock drawings within normal limits. Letter fluency was in the average range with a T-score of 48, percentile rank of 42. Category fluency was low average with a T-score of 43 and percentile rank at 24 and total fluency was low average with a T-score of 43 and percentile of 24. The patient is alert and oriented. Subtle difficulty with immediate recall and visual spatial construction and letter fluency are suggested, possibly indicating variability in thought organization. His reluctance for bladder scan is most likely related feelings of reduced control given his lengthy recovery from covid. DIAGNOSTIC IMPRESSION: Mild neurocognitive disorder, unspecified, behavior. Unspecified anxiety disorder. RECOMMENDATIONS: To improve his compliacne with recommendations, provide an explanation for the procedure and allow him an opportunity to make choices. Increased opportunity for exerting choice will improve his sense of control regarding health care related decision making. Discussions should include [facility] [address] [place] [address] CONSULTATION Name: RSOS JOHNSON Room #: 512-P [facility] IN M.R.#: [id number] Admission: 12/28/20 Attend Phys: Marino Gallegos MD Discharge: Date of : 76 Report #: [id number] advantages and disadvantage to different decision. He may benefit from a more thorough neuropsychological evaluation upon discharge prior to his return to his formal activity during his lengthy recovery from COVID. Thank you very much for allowing me to provide the consultation on this patient. <ELECTRONICALLY SIGNED> By: Lefty Sood, PhD 01/05/21 1231 [id number] Lefty Sood, PhD /nt
--- NOTE | 2021-01-05 13:23 | NUR ---
Nutrition: Pt refuses supplemental PEG feedings which is suggested due to ongoing poor appetite/intake. Main source of nutrition coming from glucerna supplements. Reports early satiety. On marinol. Encourage outside food as desired. RD recommends: Daily weights Daily MVI Obtain vitamin D level GI consult
--- NOTE | 2021-01-05 14:01 | NUR ---
Team meeting, recommendation: refusing cares ie bladder scan and bp medication. BP been elevated and he has agreed with HOSPITAL INSURANCE REPRESENTATIVE to take his medication. slide board transfers x 2 then might need max assist. bp 144/10 sitting, bp hold up therapy. o2 2 L. he voiced he can stay with his partents at dc if needed. Re team. Encourage him to work with therapy. Needs clothing and shoe size 12.
--- NOTE | 2021-01-05 15:53 | NUR ---
PER PT REQUEST, CLINICAL UPDATE FAXED TO MARYA MICHAEL.
--- NOTE | 2021-01-05 19:33 | NUR ---
DENIES PAIN/DISCOMFORT DURING AM NURSING ASSESSMENT. OFFERS MINIMAL RESPONSES TO INQUIRES FROM NURSING-TENSE AMGRY FACIAL EXPRESSION. OFFERED PRN ATIVAN BUT REFUSES. COMPLIENT WITH TAKING AM MEDICATIONS WHOLE. LUNG SOUNDS DIMINISHED-NO NOTED OR REPORTED SHORTNESS OF BREATH-02 SAT 97 PERCENT ON RA-WEARING 02 2LITERS PER NC. IS NOTED TO HAVE EXCORIATION TO SCROTUM,PERIRECTAL AREA AND GROIN FOLDS-AREA CLEANSED,DRIED AND NYSTATIN POWDER APPLIED. PEG TUBE FLUSHED AT 1500 WITH 150CC WATER. BP CHECKED MANUALLY BY NURSING AT APPROX 1500 AFTER REPOERTED ELEVATION IN BP AFTER PT SESSION-BNP MANUALLY 140/80. PT DENIES VISUAL DISTURBACE,BOUDREAUX ETC-STATES CONTINUES TO BE IN AGREEMENT WITH STARTING BP MEDICATIONS TOMMORROW AM.CONTINUES ON FALL PRECAUTIONS
[2021-01-05 19:50] VITALS: BP 132/73
--- NOTE | 2021-01-06 00:05 | NUR ---
ASSUMED CARE AT 1900 OF 01/05. PATIENT IS A&OX4, PRESENTS WITH FLAT EFFECT. NO REPORTS OF PAIN. CONTINUES ON 2L OF VIA NC, LUNG SOUNDS ARE CLEAR AND DIMINISHED TOWARDS BASES. INTERMITTENT DRY COUGH PRESENT. ORAL FLUID INTAKE ENCOURAGED. PATIENT REFUSED TOPICAL APPLICATION OF NYASTATIN TO PERIAREA, AND STATES DAY SHIFT NURSE APPLIED IT IN THE AFTERNOON. FALL PRECAUTIONS IN PLACE CALL LIGHT WITHIN REACH. WILL CONTINUE TO MONITOR.
[2021-01-06 08:00] VITALS: BP 135/88
--- NOTE | 2021-01-06 11:39 | NUR ---
PATIENT WAS IN BED ASLEEP WHEN CARE ASSUMED, DOES NOT WANT TO BE DISTURBED TILL AFTER 0800AM. PATIENT IS A&OX4, ABLE TO VOICE NEED. LUNG CLEAR BUT DIMINISHED PER ASUCULTATION IN ALL LOBE. BS+X4, ABD SOFT, NON-TENDER TO TOUCH. PATIENT HAD LARGE FORMED BOWEL MOVEMENT THIS MORNING IN THE BSC WITH ASSIST OF THERAPISTS. PATIENT IS CALM, COOPERATIVE WITH CARE, C/O LOW ENERGY, AND VERY TIRED THIS MORNING. PATIENT ACKNOLWEDGES GENERALIZED PAIN, WILL NOT RATE IT ON SCALE OF 1-10, HE ALSO DECLINES PAIN MEDICATION. PATIENT DENIES SUICIDAL/HOMICIDAL IDEATION, HE DENIES DEPRESSION/ANXIETY. GI CONSULT COMPLETED, SPOKE WITH (MANOLO)-ANSWERING SERVICE, AND DR. HINES. PATIENT TOOK ALL MEDICATION WHOLE IN CRANBERY JUICE, HE DECLINE NYSTATIN POWDER TO ERIC-AREA. NO SIGN OF ACUTE DISTRESS NOTED AT THIS TIME, WILL MONITOR FOR SAFETY.
[2021-01-06 19:16] VITALS: BP 138/82
--- NOTE | 2021-01-07 02:56 | NUR ---
ASSUMED CARE AT 1915 OF 01/06. PATIENT IS A&OX4, PRESENTING WITH FLAT AFFECT. REPORTS SOME BODY ACHES, BUT REFUSES BOTH NON-PHARMACOLOGICAL AND PHAMACOLOGICAL THERAPEUTIC INTERVENTIONS OFFERED. REFUSED TO HAVE PEG TUBE FLUSHED THIS SHIFT. DAY SHIFT NURSE REPORTED PATIENT REFUSED FLUSH DURING DAY SHIFT ASWELL BECAUSE IT WAS NOT PERFORMED AT PATIENT'S PREFFERED TIME. EDUCATION ABOUT IMPORTANCE OF HYDRATION AND POTENTIAL PEG TUBE COMPLICATIONS PROVIDED. CONTINUES ON 1L OF O2 VIA NC. LUNG SOUNDS ARE DIMINISHED, INTERMITTENT DRY COUGH NOTED, IS USAGE ENCOURAGED. ASSISTED WITH REPOSITIONING IN BED. FALL PRECAUTIONS IN PLACE, CALL LIGHT WITHIN REACH. WILL CONTINUE TO MONITOR.
--- NOTE | 2021-01-07 10:25 | NUR ---
ASSUMED CARE AT 0700. PATIENT IS ALERT AND ORIENTED X4. PATEINT CASTANO'S, P 3 ARMAMENT/ORDNANCE IMA TECHNICIAN ARE EQUAL. LUNGS ARE CLEAR AND DEMINISHED. 02 AT 2L PER N/C. PATIENT TIRES VERY EASILY. DRANK THE LIQUIDS FROM HIS TRAY. ABD IS SOFT WITH BSX4. PATIENT VOIDS DOTTIE COLORED URINE PER URINAL. UP TO THE BSC TO VOID AND HAVE BM'S. FALL AND SAFETY PROTOCOLS IN PLACE. C/O BACK PAIN, BUT DOESN'T WANT TO HAVE IT TREATED. PATIENT CONTINUES TO PROGRESS SLOWY TOWARDS D/C GOALS. WILL CONTINUE TO MONITER.
[2021-01-07 19:50] VITALS: BP 128/90
--- NOTE | 2021-01-08 02:16 | NUR ---
assumed care approx 1899 evening 01/07. pt lying in bed with head of bed elevated. 02 at 2l per n/c. pt quiet and calm with flat affect. pt took no hs meds and refused nystatin. pt appears to be sleeping soundly. bed alarm on and call light in reach. will continue to monitor.
--- NOTE | 2021-01-08 08:19 | NUR ---
Re team. Cont to work with therapy to gain strengths best. Will cont. following as needed for dc needs.
--- NOTE | 2021-01-08 11:40 | H ---
[facility] [place] [address] HISTORY AND PHYSICAL Name: ROSS JOHNSON Room #: 512-P ADM IN M.R.#: [id number] Admission: 12/28/20 Attend Phys: Marino Gallegos MD Discharge: Date of : 76 Report #: [id number] THIS REPORT FOR: cc: Eduard Landa MD, Christopher B. MD Smithson,Marino Bojorquez MD ~ DATE OF SERVICE: 12/29/2020 HISTORY AND PHYSICAL/POST-ADMISSION PHYSICIAN EVALUATION HISTORY OF PRESENT ILLNESS: He has been readmitted back to [facility] at this time to the acute inpatient rehabilitation abdullahi. He was originally diagnosed with COVID-19 in 09/2020, hospitalized at [facility] and underwent ECMO therapy, had trach, PEG placed. After being unable to wean off the vent, he was transferred to an LTAC in November. He was admitted to [facility] on 12/04/2020 from the LTAC with worsening shortness of breath. CTA revealed large, central, partially occlusive pulmonary emboli, right greater than left. No saddle embolism. Interventional radiology was consulted and the patient underwent thrombectomy on 11/14/2020. He also was found to have bilateral DVT. He was started on Xarelto. He continued on trach with nighttime vent, slow weaning. He went back to LTAC. He was decannulated, tolerated nasal cannula O2, was felt to be ready for acute in-hospital inpatient rehabilitation with a diagnosis of critical illness myopathy. Please see the documented prior medical history, social history, allergies, habits. MEDICATIONS: Per MAR. REVIEW OF SYSTEMS: See the full 14-point system. He has some residual cough. No current chest pain, shortness of breath, or abdominal discomfort. Some diffuse weakness of his lower extremities. PHYSICAL EXAMINATION: GENERAL: He is an obese, pleasant, white male, in no obvious distress. He is on nasal prong O2, currently 3 liters. He is a reasonable historian. VITAL SIGNS: Temperature 97.9, pulse 100, respirations 20, blood pressure 133/92. HEENT: Facies are symmetric. CHEST: Some diffuse decreased breath sounds throughout. CARDIAC: Sounded regular rate and rhythm. ABDOMEN: Obese. Bowel sounds positive. PEG tube site appears to be intact. NECK: Anterior neck reveals the trach site, which has a Band-Aid over it, appears to be clean. EXTREMITIES: He has functional range of motion of both upper and lower extremities. Significant weakness of bilateral upper extremities, especially in elbow extension, which is probably a grade 3+ to 4-, distally is 3+ to 4-. Lower extremities are probably a 4- to 3+. No focal calf swelling. Sensation [facility] [address] [place] [address] HISTORY AND PHYSICAL Name: ROSS JOHNSON Room #: 512-P [facility] IN M.R.#: [id number] Admission: 12/28/20 Attend Phys: Marino Gallegos MD Discharge: Date of : 76 Report #: [id number] appeared to be intact to simultaneous stimulation and also checking proprioception, bilateral large toes. ASSESSMENT: A 40-year-old white male with the following problem list: 1. Critical illness myopathy. 2. Massive pulmonary embolism and bilateral lower extremity deep venous thrombosis, status post thrombectomy 12/04. 3. Hmuvo-ty-xpmhlxr respiratory failure, status post tracheostomy. 4. Methicillin-susceptible Staphylococcus aureus pneumonia, status post antibiotics, resolved. 5. Dysphagia, status post PEG. 6. Recent COVID-19, diagnosed 09/2020. 7. Diabetes mellitus type 2. 8. Hypertension. 9. Obesity. PLAN: The patient has been admitted for acute in-hospital inpatient rehabilitation. Please see the previous and current functional status. As far as risk of complications, he does have the multiple medical comorbidities as noted above. Initial plan of care involves the interdisciplinary acute inpatient rehabilitation program. Measurable functional goals would be for the patient to become modified independent with transfers, mobility, and ADLs to hopefully return back to his prior living situation. Prognosis is reasonably good with estimated length of stay probably at least 2-1/2-3 weeks. He comes in to the rehabilitation abdullahi at a significantly low level, but is very motivated to improve his overall independence and endurance. Potential barriers would include his multiple medical comorbidities and decreased functional status. <ELECTRONICALLY SIGNED> By: Marino Gallegos MD 01/08/21 1140 [id number] Marino Gallegos MD /nt
--- NOTE | 2021-01-08 13:40 | PLAN ---
[facility] [place] [address] REHAB UNIT PLAN OF CARE Name: ROSS JOHNSON Room #: 512-P ADM IN M.R.#: [id number] Admission: 12/28/20 Attend Phys: Marino Gallegos MD Discharge: Date of : 76 Report #: [id number] THIS REPORT FOR: cc: Eduard Landa MD, Christopher B. MD Smithson,Marino Bojorquez MD ~ DATE OF SERVICE: 12/30/2020 PROGRESS NOTE/OVERALL PLAN OF CARE HISTORY OF PRESENT ILLNESS: The patient was seen back today in followup. He was in no distress. Temperature 36.6, pulse 97, respirations 16, blood pressure is 135/103. He is on nasal prong O2. He has been on 3 liters. No focal calf swelling. Bed mobility has been mod assist. We have attempted transfers with a sliding board, which has been dependent. He is nonambulatory. Working on bilateral upper extremity strengthening, grooming is supervision; bathing is moderate assist; bed mobility is mod assist. In speech therapy, he has functional cognition with functional memory and a regular diet with thin liquids. ASSESSMENT: 1. Critical illness myopathy. 2. Massive pulmonary embolism with bilateral lower extremity deep venous thrombosis, status post thrombectomy 12/04. 3. Acute on chronic respiratory failure, status post tracheostomy. 4. Methicillin-resistant Staphylococcus aureus pneumonia, status post antibiotics, resolved. 5. Dysphagia, status post PEG. 6. Recent COVID-19 diagnosed 09/2020. 7. Diabetes mellitus type 2 with elevated hemoglobin A1c. 8. Hypertension. 9. Obesity. PLAN: The overall plan of care is based on the pre-admit screen and information garnered from therapy assessments. 1. Estimated length of stay is going to be quite long, at least 21 days. 2. Medical prognosis reasonably good. 3. Anticipated interventions includes the interdisciplinary acute inpatient rehabilitation program. 4. Anticipated functional outcomes would be for the patient to become ideally modified independent at least at the wheelchair level to try to return back to the home setting. 5. Discharge destination is going to be back to the home setting, most likely living at his parents' home. There are also supportive siblings who can give some intermittent help. 6. Expected therapy by discipline includes PT, OT and speech 1 hour per day [address] [address] REHAB UNIT PLAN OF CARE Name: ROSS JOHNSON Room #: 512-P [facility] IN ..#: [id number] Admission: 12/28/20 Attend Phys: Marino Gallegos MD Discharge: Date of : 76 Report #: [id number] each 5 days a week throughout the duration of the acute inpatient rehabilitation stay. Would anticipate he will be tapering off the speech and be able to focus on the PT and OT. ADDENDUM: The patient's prognosis for significant practical improvement within a reasonable period of time appears good. Given the patient's complex medical condition and risk of further medical complication, rehabilitation services could not be safely provided at a lower level of care such as a jail facility. <ELECTRONICALLY SIGNED> By: Marino Gallegos MD 01/08/21 1340 [id number] Marino Gallegos MD /nt
--- NOTE | 2021-01-08 17:53 | NUR ---
I have reviewed the documentation by GRACE TARIQ from 01/08/29 to 01/08/21 and I concur with it. JUDITH GILLILAND
[2021-01-08 19:48] VITALS: BP 130/87
--- NOTE | 2021-01-09 02:02 | NUR ---
assumed care approx 1900 evening 01/08. pt alert and oriented x4, stated he would prefer not being woken up until 0800 in am. pt stated he had some discomfort with therapy however feels like he might be making some progress. no hs meds ordered for pt. bed alarm on and call light in reach. will continue to monitor.
[2021-01-09 04:38] LABS: ABSOLUTE NEUTROPHILS 2.9 thou/uL (1.4-8.2); EOSINOPHILS 8.5 % (0.0-3.0); HEMATOCRIT 41.9 % (42.0-52.0); HEMOGLOBIN 13.4 gm/dL (14.0-18.0); LYMPHOCYTES 32.2 % (24.0-44.0); MCH 28.5 pg (26.0-34.0); MCHC 31.9 g/dL (28.0-37.0); MCV 89.5 fL (80.0-100.0); MONOCYTES 8.7 % (1.0-8.0); PLATELET COUNT 235 thou/uL (150-400); POLYS 49.6 % (36.0-66.0); RBC 4.69 mil/uL (4.50-6.00); RDW 15.8 % (10.5-14.5); WBC 5.9 thou/uL (4.0-11.0)
[2021-01-09 04:43] LABS: CALCIUM 8.6 mg/dL (8.5-10.1); CREATININE 0.5 mg/dL (0.7-1.3); MAGNESIUM 2.1 mg/dL (1.8-2.4); POTASSIUM 3.3 mmol/L (3.5-5.1)
[2021-01-09 08:00] VITALS: BP 130/91
--- NOTE | 2021-01-09 08:00 | NUR ---
ASSUMED CARE AT 0700. PATIENT IS ALERT AND ORIENTED X4. PATIENT CASTANO'S, CARETAKER GROUNDS ARE EQUAL. LUNGS ARE CLEAR AND DEMINISHED. ABD IS SOFT WITH BSX4. G.T. INTACT. DRAIN SPONGE CHANGED. FALL AND SAFETY PROTOCOLS IN PLACE. C/O ABD PAIN. LIDOCANE PATCH APPLIED. CONTINUES TO PROGRESS SLOWLY TOWARDS D/C GOALS. WILL CONTINUE TO MONITER.
[2021-01-09 19:00] VITALS: BP 138/90
--- NOTE | 2021-01-10 02:28 | NUR ---
Assumed pt care at 1900. A/OX4,very chatty with chart writer at ,excited he did complete some PT earlier and positive he can do better with time. VSS,denies pain on assessment,heat pad off. Pt looking forward to a good nights sleep and participate in therapy as needed. Resting quietly w/o any distress noted,oxygen on @ 2L/NC.Does have a NPC,PO intake encouraged but pt hesitant to stating he's not hungry for anything right now probably tomorrow. Fall precautions in place,will continue to monitor pt.
[2021-01-10 10:21] VITALS: BP 120/81
--- NOTE | 2021-01-10 14:24 | NUR ---
Assumed care for Pt at shift change, pt found comfortably sleeping, but immediately awaken, A/O x 4, assessment done and charted, meds given as scheduled, c/o pain, PRN analgesics given, fair appetite, afebrile, VSS, safety precaution maintained, labs reviewed, no new concerns. Cont' POC.
[2021-01-10 20:30] VITALS: BP 136/87
--- NOTE | 2021-01-11 04:17 | NUR ---
ASSUMED CARE OF PT AT 1915 ON 01/10/21. PT IS A&OX4. IS ON 2L OF O2/NC. DENIES SOB. HAS DRY COUGH WITH DEEP BREATHS. IS STABLE. DENIES PAIN AT THIS TIME. IS ABLE TO TURN SELF IN BED. IS UP WITH MAX ASSIST OF 2 GB. FALL PRECAUTIONS & HOURLY ROUNDING CONTINUED THIS SHIFT. PEG TUBE IN PLACE. DRSG INTACT. PT HAS NOT VOIDED THIS SHIFT. REFUSES BLADDER SCAN. PT STATED, "I WILL LET YOU KNOW WHEN I NEED TO GO". EDUCATION PROVIDED. HAS NOT DRANK FLUIDS. FLUIDS ENCOURAGED. EDUCATION PROVIDED. PT STATED, "I JUST DON'T HAVE A DESIRE TO DRINK. NOTHING TASTE GOOD AT ALL". LABS & VITALS REVIEWED. REFUSED NYSTATIN TO PANUS. LIDOCAINE PATCH REMOVED FROM BACK. PT ASLEEP. PT STATED, "I REALLY DON'T WANT TO BE WAKEN UP. I WOULD LIKE TO GET 8 HOURS OF SLEEP. I AM A LITE SLEEPER. WHEN YOU OPEN THE DOOR I WAKE UP.". THIS NURSE EXPLAINED THE IMPORTANCE OF HOURLY ROUNDING & THAT I WOULD BE QUIET POSSIBLE. PS IS SLEEPING. CALL LIGHT WITHIN REACH. WILL CONTINUE TO MONITOR.
[2021-01-11 08:07] VITALS: BP 129/87
--- NOTE | 2021-01-11 11:59 | NUR ---
ASSUMED PT CARE AT SHIFT CHANGE, PT A/O X 4 , ON 2L OF O2 TO KEEP OXYGEN SAT >95%, PT STATED THAT THE NIGHT WAS REGULAR, C/O PAIN IN LOWER BACK, PRN ANALGESICS GIVEN BEFORE THERAPY, POOR APPETITE, INADEQUATE FLUIDS INTAKE , EDUCATION SESSION ON DEHYDRATION, REINFORCEMENT NEEDED, POSIBLE URINARY RETENTION , PT STATES THAT'S HIS BASELINE TO URNATE EVERY OTHER DAY. NO URINARY OUTPUT IN THE LAST 24 HRS, REFUSED BLADDER SCAN , PT LOOKS COMFORTABLE, AFEBRILE, SAFE WITH ALL PRECAUTION MEASURES IN PLACE , ASSESSMENT DONE AT BEDSIDE AND CHARTED, ALL MEDS GIVEN PER ORDER, PT TAKES PILLS WHOLE WITH JUICE, LABS REVIEWED NO NEW ISSUES. CONT POC AND EDUCATION.
[2021-01-11 19:41] VITALS: BP 130/88
--- NOTE | 2021-01-12 01:10 | NUR ---
assumed care approx 1900 evening 01/11. pt lying in bed with head of bed elevated at change of shift. 02 at 2l per n/c. pt in fairly good mood watching [employer] game on tv. pt reminded to drink fluids in order to void. pt stated he doesnt void during the night and mostly daytime and infrequently. pt adament about that stating he was not worried and he was fine from his perspective. pt with no hs meds. vss. pt appears to be sleeping soundly. bed alarm on and call light in reach. will continue to monitor.
[2021-01-12 08:00] VITALS: BP 142/98
[2021-01-12 12:28] LABS: ABSOLUTE NEUTROPHILS 5.5 thou/uL (1.4-8.2); BASOPHILS 0.7 % (0.0-2.0); EOSINOPHILS 4.2 % (0.0-3.0); HEMATOCRIT 47.1 % (42.0-52.0); HEMOGLOBIN 14.9 gm/dL (14.0-18.0); LYMPHOCYTES 17.6 % (24.0-44.0); MCH 28.1 pg (26.0-34.0); MCHC 31.6 g/dL (28.0-37.0); MCV 89.2 fL (80.0-100.0); MONOCYTES 7.1 % (1.0-8.0); PLATELET COUNT 249 thou/uL (150-400); POLYS 70.4 % (36.0-66.0); RBC 5.29 mil/uL (4.50-6.00); RDW 16.1 % (10.5-14.5); WBC 7.8 thou/uL (4.0-11.0)
[2021-01-12 12:36] LABS: ALBUMIN 3.1 g/dL (3.4-5.0); CREATININE 0.6 mg/dL (0.7-1.3); MAGNESIUM 2.1 mg/dL (1.8-2.4); POTASSIUM 4.6 mmol/L (3.5-5.1); TOTAL BILIRUBIN 0.6 mg/dL (0.2-1.0); TOTAL PROTEIN 6.7 g/dL (6.4-8.2)
--- NOTE | 2021-01-12 12:46 | NUR ---
team meeting, recommendation: Adl's in bed with mod assist, not standing yet. dependent assist of 2 for transfers, when fatigued max assist. [address] scan today of abd. Re team with anticipated dc 01/27.
--- NOTE | 2021-01-12 15:01 | NUR ---
ASSUMED PT CARE AT SHIFT CHANGE, A/ O , LOOKED SLEEPY AND CALM, C/O OF "NOT FEELING WEEL", HAD ONE EPISODE OF N/V , AND 1 LOSE STOOL, OTHERWISE VITAL SIGNS STABLE, SAFE WITH ALL PRECAUTIONS IN PLACE, LABS REVIEWED NOT CONCERNING, POOR APPETITE, UP WITH 2 ASSISTS, FEELS VERY WEEK, AFEBRILE, TAKES MEDS WHOLE WITH JUICE, ASSESSMENT DONE AT BEDSIDE AND CHARTED, ALL MEDS GIVEN PER SCHEDULE, WILL CONT' TO MONITOR FOR CHANGE.
--- NOTE | 2021-01-12 16:01 | NUR ---
I have reviewed the documentation by GAURI TARIQ from 01/11/21 to 01/12/21 and I concur with it. NATE MUHAMMAD
[2021-01-12 19:31] VITALS: BP 134/91
--- NOTE | 2021-01-13 01:54 | NUR ---
ASSUMED CARE APPROX 1900 EVENING 01/12. PT DENIES COMPAINTS, FELL ASLEEP EARLY IN EVENING, NO HS MEDS, APPEARS TO BE SLEEPING SOUNDLY. 02 AT 2L PER N/C. BED ALARM ON AND CALL LIGHT IN REACH. WILL CONTINUE TO MONITOR.
[2021-01-13 08:00] VITALS: BP 128/88
--- NOTE | 2021-01-13 11:03 | NUR ---
ASSUMED CARE AT 0700. PATIENT IS ALERT AND ORIENTED X4. PATIENT CASTANO'S, ULTRA SOUND TECHNICIAN ARE EQUAL. LUNGS ARE CLEAR AND DEMINISHED. 02 AT 2L PER N/C. ABD IS SOFT WITH BSX4. PEG TUBE INTACT. DRESSING CHANGED. FLUSHED ACCORDING TO PROTOCOL. C/O NAUSEA. LEMON/[place] SODA GIVEN. BRICKLAYER'S ASSISTANT HERE. ANTI-EMETIC ORDERED FOR NAUSEA. ENCOURAGED PO FLUIDS. UP TO BSC WITH SLIDE BOARD. NO IV ACCESS. FALL AND SAFETY PROTOCOLS IN PLACE. DENIES PAIN AT THIS TIME. CONTINUES TO PROGESS SLOWLY TOWARDS D/C GOALS. WILL CONTINUE TO MONITER.
[2021-01-13 20:09] VITALS: BP 128/85
--- NOTE | 2021-01-14 03:55 | NUR ---
ASSUMED CARE AT 1930 OF 01/13. PATIENT IS A&OX4, DENIES PAIN OR SHORTNESS OF BREATH. CONTINUES ON 2L OV O2 VIA NC. REFUSED NYASTATIN APPLICATION AT HS. REPORTS ABDOMINAL DISCOMFORT AND NAUSEA, PRN NAUSEA MEDICATION OFFERED BUT PATIENT REFUSES. ABD SOFT, NON-DISTENDED AND ABD SOUNDS PRESENT IN ALL 4 QUANDRANTS. PO FLUIDS ENCOURAGED. PEG TUBE IN PLACE AND INTACT. ASSISTED WITH REPOSTIONING IN BED. PATIENT REQUESTED THAT HE IS NOT WOKEN UP FOR HIS 0700 PROTONIX, AND WOULD RATHER TAKE AT 0800 WITH HIS BREAKFAST. MEDICATION EDUCATION PROVIDED. FALL PRECAUTIONS IN PLACE, CALL LIGHT WITHIN REACH. WILL CONTINUE TO MONITOR.
[2021-01-14 08:00] VITALS: BP 122/91
--- NOTE | 2021-01-14 11:13 | NUR ---
ASSUMED CARE AT 0700. PATIENT IS ALERT AND ORIENTED X4. PATIENT CASTANO'S, KEYPUNCH OPERATOR ARE EQUAL. LUNGS ARE CLEAR AND DEMINISHED. ABD IS SOFT WITH BSX4. PATIENT IS NOT DRINKING MUCH R/T FLUIDS MAKE HIM SICK. FALL AND SAFETY PROTOCOLS IN PLACE. C/O RIB PAIN. MEDICATED WITH LIDODERM PATCH. PATIENT USES SLIDE BOARD FROM THE BED TO THE W/C. UP IN W/C WITH P.T. CONTINUES TO PROGRESS SLOWLY TOWARDS D/C GOALS. WILL CONTINUE TO MONITER.
[2021-01-14 19:28] VITALS: BP 130/78
--- NOTE | 2021-01-15 04:01 | NUR ---
ASSUMED CARE AT 1900 OF 01/14. PATIENT IS A&OX4, APPEARS TO BE IN BETTER SPIRITS AT HS, AND REPORTS HAVING A GOOD DAY OF THERAPY. PATIENT REFUSED NYASTATIN POWDER APPLICATION AND PEG TUBE FLUSH AT HS. ORAL FLUID INTAKE ENCOURAGED, AND PATIENT REQUESTED FOR A CUP OF ICE CHIPS AND A [place]ALKY[place] SODA. CONTINUES ON 2L OF O2 VIA NC, LUNG SOUNDS ARE CLEAR IN UPPER LOBES AND DIMINISHED TOWARD BASES. PATIENT REPORTED LIDOCAINE PATCH TO LEFT RIB CAGE WAS EFFECTIVE AT MANAGING PAIN. ASSISTED WITH REPOSITIONING IN BED. FALL PRECAUTIONS IN PLACE, CALL LIGHT WITHIN REACH. WILL CONTINUE TO MONITOR.
[2021-01-15 08:00] VITALS: BP 128/84
--- NOTE | 2021-01-15 08:12 | NUR ---
Cont to encourage him to work with therapy, to assist with his weakness and to get stronger before going home. He can stay with his mom and ze-dad at their house if needed before he returns to his home. Cont following as needed for dc needs. Anticipated dc 01/27.
--- NOTE | 2021-01-15 08:37 | NUR ---
I have reviewed the documentation by GRACE TARIQ from 01/14/21 to 01/14/21 and I concur with it. JUDITH GILLILAND
--- NOTE | 2021-01-15 16:55 | NUR ---
I have reviewed the documentation by GRACE TARIQ from 01/15/21 to 01/15/21 and I concur with it. JUDITH GILLILAND
[2021-01-15 18:17] VITALS: BP 128/84
--- NOTE | 2021-01-15 19:03 | NUR ---
Patient care resummed, patient located in bed lying supine resting comfortably. Patient was not woken until 0800 per orders. Patient presented to [employer] pleasent, cheerful, and cooperative. Patient had 2 Ensures today, 2 [place] Limes, and 1 Cranberry/1 Grape juice. Patients VSS and WNL, Patient is on oxygen via nasal cannula at 2L. Patients lung sounds are clear and diminished, abdomen is soft and bowel sounds are pleasnt and hypoactive. Patient presents with a mild cough but denies SOB and chest pain. Fall precautions are in place at this time. A&O*4. Peg is intact without reddness and pain. Patient denies urintating or having a bowel movement but denies bladder scan and stool assistance. Will continue to monitor B&B function.
[2021-01-15 19:29] VITALS: BP 129/80
--- NOTE | 2021-01-16 02:01 | NUR ---
assumed care approx 1900 evening 01/15. pt lying in bed watching tv at change of shift. 02 at 2l per n/c. pt encouraged to drink fluids and pt stated he does not like the water here. pt did void approx 1000ml in urinal near hs. per aide, urine was very dark in color. pt stated he does not want to be awoken for early med or blood pressure. bed alarm on and call light in reach. will continue to monitor.
[2021-01-16 08:00] VITALS: BP 123/94
--- NOTE | 2021-01-16 09:10 | NUR ---
ASSUMED CARE AT 0700. PATIENT IS ALERT AND ORIENTED X4. PATIENT CASTANO'S, SUPERVISOR DENTURE DEPARTMENT ARE EQUAL. LUNGS ARE CLEAR AND DEMINISHED. ABD IS SOFT WITH BSX4. PATIENT HAS G.T. DRESSING SPONGE CHANGED. G.T. FLUSHED ACCORDING TO PROTOCOLS. PATIENT IS UP WITH P.T. TO W/C PER SLIDING BOARD. PATIENT HAS NO IV ACCESS. PATIENT IS VOIDING DARK DOTTIE COLORED URINE PER URINAL. FALL AND SAFETY PROTOCOLS IN PLACE. DENIES PAIN AT THIS TIME. CONTINUES TO PROGRESS SLOWLY TOWARDS D/C GOALS. WILL CONTINUE TO MONITER.
[2021-01-16 19:15] VITALS: BP 121/83
--- NOTE | 2021-01-17 02:28 | NUR ---
ASSUMED CARE AT 1900 F 01/16. PATIENT IS A&OX4. DENIES PAIN OR SHORTNESS OF BREATH. CONTINUES ON 2L OF OXYGEN VIA NASAL CANULA. PEG TUBE IN PLACE AND DRESSING INTACT. DENIES NAUSEA. PATIENT ORDERED SOME FAST FOOD HS SNACK, AND REQUESTED FOR [place] SHAILESH AND ICE TO DRINK . ASSISTED WITH REPOSITIONING. FALL PRECAUTIONS IN PLACE, CALL LIGHT WITHIN REACH. WILL CONTINUE TO MONITOR.
[2021-01-17 08:00] VITALS: BP 134/89
--- NOTE | 2021-01-17 15:53 | NUR ---
Assumed care for pt at shift change, A/O x 4, assessment done at bedside, charted, VSS, labs reviewed no concerns, all meds given per order, takes pills whole , fair appetite , on 1L of O2, no respiratory distress noted appears comfortable and safe; fall precautions maintained, no urinary output since shift change, Pt refused bladder scan, stating: "it's my habit of going every other other day". Educatiom provided on complications of urinary retention. Pt needs reinforcement. will comt' monitoring for change
[2021-01-17 19:28] VITALS: BP 122/77
--- NOTE | 2021-01-18 02:20 | NUR ---
ASSUMED CARE AT 1900 OF 01/17. PATIENT IS A&OX4, DENIES PAIN OR SHORTNESS OF BREATH. CONTINUES ON 1L OF OXYGEN VIA NASAL CANULA. PO FLUID INTAKE IS ENCOURAGED, PATIENT HAD SOME [place] SHAILESH ON ICE AT HS. REFUSES WATER OFFERED AND REPORTS NOT LIKING WATER TASTE AT FACILITY. PATIENT IS ASSITED WITH REPOSITIONING IN BED. FALL PRECAUTIONS IN PLACE, CALL LIGHT WITHIN REACH. WILL CONTINUE TO MONITOR.
[2021-01-18 09:11] VITALS: BP 118/79
--- NOTE | 2021-01-18 15:07 | NUR ---
Assumed pt care at shift change, A/O x 4, assessed at bedside, no new issues voiced during the first hours of the shift, vss, labs reviewed, all meds given per order, took pills whole with juice , requested lidocain patch in prevention of pain during therapy, had one episode of N/V, refused antiemetic, appeared comfortable and safe; all safety measures in place, worked successfuly w/ PT/OT; fair appetite, refused lunch; voided once, still poor fluids intake for which education was given. remained on 1L of O2, no respiratory distress, Will cont' monitoring for change.
[2021-01-18 19:45] VITALS: BP 122/81
--- NOTE | 2021-01-18 23:37 | NUR ---
PT ALERT AND ORIENTED X 4. PT DENIES PAIN OR DISCOMFORT. NO N/V. PT DOES NOT WANT TO BE DISTURBED DURING THE NIGHT. INSTRUCTED PT TO CALL FOR ASSISTANCE IF HE NEEDS ANYTHING.
[2021-01-19 09:59] VITALS: BP 124/86
--- NOTE | 2021-01-19 12:06 | NUR ---
TOOK OVER PATIENT CARE AT 0700. A/Ox4 ABLE TO MAKE NEEDS KNOWN. C/O LEFT SIDE PAIN THAT PRN TYLENOL WAS GIVEN AND EFFECTIVE. PATIENT IS PLEASANT BUT NOT ALWAYS THE MOST COOPERATIVE WITH CARES. REFUSED NYSTATIN POWDER THIS AM. POOR APPETITE NOTED. WORKED WITH PT/OT THIS AM. NEW ORDER FOR DAILY WEIGHT. CONTINUE WITH POC, NO NEEDS OR CONCERNS AT THIS TIME.
--- NOTE | 2021-01-19 13:27 | NUR ---
Team meeting, recommendation: outpt to have peg removed when ordered my md. Will need to be seen at [facility] where it was put in. [facility]. refusing peg tub flush. emesis yesterday and declined Zofran as ordered for nausea and vomiting. dressing set up assist. transfers dependent or max assist. 20 min from bed to wheelchair. 22ft with fww with contact assist. Moved dc to 02/03 to cont. therapy to maximum independence prior to dc home or with his mom and stepdad before return to his home. HH (pt,ot, nursing). Will need FWW.
[2021-01-19 19:19] VITALS: BP 122/77
--- NOTE | 2021-01-20 04:36 | NUR ---
ASSUMED CARE AT 1900 OF 01/19. PATIENT IS A&OX4, DENIES PAIN OR SHORTNESS OF BREATH. CONTINUES ON 2L OF OXYGEN VIA NC. DENIES NAUSEA/VOMITING AT HS. ORAL FLUIDS ENCOURAGED. ASSISTED WITH REPOSITIONING IN BED. FALL PRECAUTIONS IN PLACE, CALL LIGHT WITHIN REACH. WILL CONTINUE TO MONITOR.
[2021-01-20 08:00] VITALS: BP 143/85
--- NOTE | 2021-01-20 19:23 | NUR ---
I have reviewed the documentation by GAURI TARIQ from 01/18/21 to 01/20/21 and I concur with it. NATE MUHAMMAD
[2021-01-20 19:33] VITALS: BP 121/78
--- NOTE | 2021-01-21 03:29 | NUR ---
ASSUMED CARE AT 1900 OF 01/20. PATIENT IS A&OX4. PRESENTS WITH FLAT AFFECT, AND REPORTED PAIN IN RIGHT KNEE. PATIENT REPORTS HE MESSED UP HIS KNEE IN THERAPY, AND FEELS LIKE HE PUSHED HIMSELF TOO HARD TODAY. PATIENT APPEARS ANXIOUS ABOUT ABILITY TO CONTINUE THERAPY. ACTIVE LISTENING AND ENCOURAGEMENT PROVIDED BY NURSE. RIGHT KNEE APPEARS SLIGHTLY SWOLLEN & TENDER TO PRESSURE. PAIN MANAGED WITH APPLICATION OF ICE PACK TO KNEE, WITH PATIENT REPORTING SOME RELIEF AND SWELLING DECREASED. ORAL FLUID INTAKE ENCOURAGED. FALL PRECAUTIONS IN PLACE, CALL LIGHT WITHIN REACH. WILL CONTINUE TO MONITOR.
[2021-01-21 08:00] VITALS: BP 139/91
--- NOTE | 2021-01-21 10:58 | NUR ---
ASSUMED CARE AT 0700. PATIENT IS ALERT AND ORIENTED X4. PATIENT CASTANO'S, TRACK SERVICE PERSON ARE EQUAL. LUNGS ARE CLEAR AND DEMINISHED. CONTINUES ON 02 AT 2L PER N/C. PATIENT HAS BACK PAIN, AND KNEE PAIN. APPETITE IS POOR. ENCOURAGED PO FLUID INTAKE. PATIENT INCONTINENT OF URINE IN THE BED. BED CHANGED. ABD IS SOFT WITH BSX4. NO BM SINCE THE Jan. OFFERED PATIENT SUPPOSITORY , PATIENT REFUSED. HE STATED " HE DIDN'T PLAN TO TAKE ANY LAXATIVE. OFFBEARER SEWER PIPE NOTIFIED. FALL AND SAFETY PROTOCOLS IN PLACE. C/O BACK AND KNEE PAIN . MEDICATED WITH PRN PAIN MED, AND LIDOCAINE PATCH. CONTINUES TO PROGRESS SLOWLY TOWARDS D/C GOALS. WILL CONTINUE TO MONITER.
[2021-01-21 19:37] VITALS: BP 115/69
--- NOTE | 2021-01-22 02:16 | NUR ---
ASSUMED CARE APPROX 1900 EVENING 01/21. PT LYING IN BED WITH HEAD OF BED ELEVATED. O2 AT 1L PER N/C. PT REFUSED NYSTATIN POWDER AT HS. PT STATED HE WANTS TO HAVE AN MRI TODAY 01/22 BECAUSE HE THINKS HE INJURED HIS KNEE. PT REFUSING ANY PAIN MEDS. PT REFUSING STOOL SOFTENERS AND/OR LAXATIVES EVEN THOUGH IT HAS BEEN SEVERAL DAYS SINCE A BM. PT DENIES DISCOMFORT STATING HE DOESNT HAVE BMS EVERY DAY. PT GIVEN MUCH EMOTIONAL SUPPORT. BED ALARM ON AND CALL LIGHT IN REACH. WILL CONTINUE TO MONITOR.
--- NOTE | 2021-01-22 14:26 | NUR ---
Cont. to assist with discharge planning needs. dc 02/03 vs 01/27 depending on if [facility] appro[facility] more rehab days.
--- NOTE | 2021-01-22 16:23 | NUR ---
I have reviewed the documentation by GRACE TARIQ from 01/21/21 to 01/22/21 and I concur with it. JUDITH GILLILAND
--- NOTE | 2021-01-22 16:46 | NUR ---
Pt looked comfortable at the time of the shift change, A/O x 4, assessment done at bedside and charted, pt stated that he had a good night, VSS, labs reviewed, no respiratory distress noted, still on 1L of O2, PEG tube patent, but c/o pain in R, that is slightly swollen, no voids nor BM recorded in the last 24 hrs, refused laxatives, education provided, fluids intake promoted, swollen, redness at groin area , Nystatin powder applied per order, took all pills whole with juice, safety measures maintained, worked well with PT/OT, no other concerns, will cont' POC.
[2021-01-22 19:35] VITALS: BP 126/85
--- NOTE | 2021-01-23 01:22 | NUR ---
assumed care approx 1900 evening 01/22. pt lying in bed watching tv alert and oriented x4, 02 at 1L per n/c. pt seems depressed with flat affect. pt curious about MRI results. read out report to pt at bedside and pt seemed surprised of results. pt c/o pain however refusing any meds to relieve pain. pt refusing powder, any laxatives or stool softeners. pt stated he just wants to sleep. bed alarm on and call light in reach. will continue to monitor.
[2021-01-23 07:57] VITALS: BP 129/82
--- NOTE | 2021-01-23 08:06 | NUR ---
ASSUMED CARE AT 0700. PATIENT IS ALERT AND ORIENTED X4. PATIENT CASTANO'S, SUPERVISOR BLOOMING MILL ARE EQUAL. LUNGS ARE CLEAR AND DEMINISHED. ABD IS SOFT WITH BSX4. NO BM X6 DAYS REFUSING LAXATIVES AND SUPPOSITORIES. INCONTINENT OF URINE AT TIMES. ENCOURAGED PO FLUIDS. REFUSED HIS LIDOCAINE PATCH THIS A.M. FALL AND SAFETY PROTOCOLS IN PLACE. DENIES PAIN AT THIS TIME. CONTINUES TO PROGRESS SLOWLY TOWARDS D/C GOALS. APPETITE IS POOR. MRI OF HIS KNEE WAS NEGATIVE. WILL CONTINUE TO MONITER.
[2021-01-23 19:45] VITALS: BP 118/79
--- NOTE | 2021-01-24 02:35 | NUR ---
ASSUMED CARE AT 1915 OF 01/23. PATIENT IS A&OX4, DENIES PAIN AT ASSESMENT. DENIES SHORTNESS OF BREATH, CONTINUES ON 1L OF O2 VIA NC. PO LAXITIVE ADMINISTERED AT HS, ABDOMEN IS SOFT, ACTIVE BS PRESENT IN ALL 4 QUANDRANTS. ASSISTED WITH USING URNAL TO VOID 750CC OF DARK DOTTIE URINE. ORAL FLUID INTAKE ENCOURAGED, PATIENT REQUESTED FOR EXTRA [place] SOD[place] AND ICE FOR THE NIGHT. FALL PRECAUTIONS IN PLACE, CALL LIGHT WITHIN REACH. WILL CONTINUE TO MONITOR.
[2021-01-24 08:16] VITALS: BP 121/77
--- NOTE | 2021-01-24 15:31 | NUR ---
Assumed pt care at approx 0700, assessment done at bedside as charted, Pt A/O x 4, no overnight issues reported, VSS, labs reviewed no new concerns, pts appeared calm , cooperative, comfortable and safe; all precautions in place, no c/o pain, all meds given per order, refused lidocain patch and stool softener, takes meds whole with water, remains on 1L of O2 no respiratory distress noted, had a BM with traces of blood, hard and brown, no voiding during this shift, PT states that's normal for him, fair appetite, refused both breakfast and lunch, Pt has not been up today, will cont' to monitor for change.
[2021-01-24 19:37] VITALS: BP 128/76
--- NOTE | 2021-01-25 05:39 | NUR ---
ASSUMED CARE OF PT AT 1900. BEDSIDE REPORT RECIEVED. JAMEE ASSESSMENT COMPLETE. PEG CARE COMPLETE, PATENT. NO IV ACCESS. 1 L NC CONTINIOUS. DENIES ANY PAIN. MEDS GIVEN PER MAY. REFILLED DRINKS. PT HAS INDEPDENT BED MOBILITY. ALL NEEDS MET. HOURLY ROUNDING CONTINUING. CALL LIGHT IN REACH
[2021-01-25 08:00] VITALS: BP 137/92
--- NOTE | 2021-01-25 14:46 | NUR ---
ASSUMED PT CARE AT SHIFT CHANGE, BEDSIDE REPORT RECEIVED, DAILY ASSESSMENT COMPLETED CHARTED, PT A/O X 4, NO C/O PAIN BUT REQUESTED LIDOCAIN PATCH IN PREVENTION OF PAIN WHEN WORKING WITH PT/OT, VSS, AFEBRILE, SAFE AND COMFORTABLE, REDNESS IN JJ GROIN SITES , [place] PEG TUBE PATENT, PT STAYS IN BED MOSTLY, POOR APPETITE, I&O'S BELOW EXCPED LIMITS, PT EDUCATED ABOUT IT, HAD ONE EPISODE OF N/V, NO OTHER CONCERNS , LABS REVIEWED AND NO NEW CONCERNS, WILL CONT CURRENT TREATMENT.
[2021-01-25 19:40] VITALS: BP 141/90
[2021-01-25 19:48] VITALS: BP 122/79
--- NOTE | 2021-01-26 00:55 | NUR ---
assumed care approx 1900 evening 01/25. pt lying in bed resting at change of shift. pt refuses hs meds. pt did void large amt dark colored urine in urinal (approx 900ml). 02 at 1L per n/c. pt denied pain. pt appears to be sleeping soundly. bed alarm on and call light in reach. will continue to monitor.
[2021-01-26 07:38] VITALS: BP 129/87
--- NOTE | 2021-01-26 14:10 | NUR ---
Team meeting, recommendation: Poor po intact . Has supplement for nutrition, cont. to have nausea. Had increase o2 to 2L with shower activity and then back down to 1 L oxygen. Unite nurse manage cont. to provide updates for his short team disability an [facility] to the [facility]. If he cant go to his own home with 2 steps and 1 step, he trying to get friends to build a ramp but then he afraid of ramp getting slick. His mom home has 4 steps to enter home. Can his mom and step dad stay with him at his house? Mom and stepdad will need training to be able to assist him at home. Encourage matilde to assist with personal adls, i.e. using urinal . Needs home o2. he will need manual wheel chair. tube transfer bench. Dc 02/09 ( pt, ot, nursing, sw). Matilde to check with [facility] to see if have any extra assist at home through the [facility].
--- NOTE | 2021-01-26 17:46 | NUR ---
PT A&OX4. PT UP TO BSC. PT STATED HE COULD NOT WIPE SELF AFTER BM TODAY. THIS NURSE CLEANSED EAGLE AREA. CONTINUE WITH POC.
--- NOTE | 2021-01-26 18:26 | NUR ---
I have reviewed the documentation by GAURI TARIQ from 01/25/21 to 01/26/21 and I concur with it. NATE MUHAMMAD
[2021-01-26 19:03] VITALS: BP 129/80
--- NOTE | 2021-01-27 03:06 | NUR ---
assumed care approx 1900 evening 01/26. pt lying in bed at change of shift. 02 at 1L per n/c. pt with flat affect however in fairly good mood. pt stated he was trying to work on his living arrangements when he is discharged. pt appears to be sleeping soundly. bed alarm on and call light in reach. will continue to monitor.
[2021-01-27 07:51] VITALS: BP 125/81
--- NOTE | 2021-01-27 15:20 | NUR ---
ASSUMED PT CARE AT SHIFT CHANGE, ASSESSEMET DONE AT BEDSIDE BENNIE, PT A/O X 4, NO C/O PAIN, VSS, LABS REVIEWED NO CONCERNS, REMAINED SAFE AND COMFORTABLE, ALL SAFETY MEASURES IN PLACE, WORKED WELL WITH PT/OT, NO BM NO VOIDS IN THIS SHIFT, NO C/O PAIN. wILL CONT POC. PEG TUBE PATENT, GROIN SITE WITH REDNESS, NYSTATIN APPLIED. NO OTHER CONCERNS.
[2021-01-27 19:54] VITALS: BP 130/92
--- NOTE | 2021-01-28 02:56 | NUR ---
ASSUMED CARE AT 1915 OF 01/27. PATIENT IS A&OX4. DENIES PAIN OR SHORTNESS OF BREATH, CONTINUES ON 1L OF O2 VIA NC. PATIENT INQUIRED ABOUT XARELTO DOSE FOR THE DAY, BECAUSE IT WAS PUT ON HOLD IN THE ANTICIPATION OF REMOVING PEG TUBE IN THREE DAYS. PEG TUBE REMOVAL HAS BEEN RESCHEDULED FOR NEXT MONDAY AND XARELTO HAS BEEN RESTARTED,BUT PATIENT HAD NOT RECEIVED DOSE FOR 01/27. PHARMACY WAS NOTIFIED AND ONE DOSE WAS MADE AVAILABLE FOR HS ADMINISTRATION. TOLERATED ORAL MED WHOLE WITH CRANBERRY JUICE. REFUSED NYASTATIN APPLICATION AT HS. ORAL FLUID INTAKE ENCOURAGED. FALL PRECAUTIONS IN PLACE, CALL LIGHT WITHIN REACH. WILL CONTINUE TO MONITOR.
[2021-01-28 07:58] VITALS: BP 121/83
--- NOTE | 2021-01-28 09:30 | NUR ---
REPORT RECEIVED FROM NURSE KAYLAN AND NOTED THAT SHE REPORTED THAT PT "DID NOT VOID AT ALL LAST NIGHT, AND HAS TOLD NURSES THAT HE ONLY VOIDS ONCE EVERY OTHER DAY." PER REPORT, PATIENT HAS "REFUSED TO ALLOW STAFF TO SCAN HIS BLADDER." ALL OF THIS IMMEDIATELY REPORTED TO EARLINE EAGLE, AND ON INITIAL ASSESSMENT BY THIS RN WHILE PT WAS IN PHYSICAL THERAPY, PT REAFFIRMED THIS STATING, "YES, I ONLY PEE EVERY OTHER DAY AND I HAVE BEEN THIS WAY FOR A VERY LONG TIME. I KNOW MY BODY AND I CAN TELL WHEN I NEED TO GO. I DON'T NEED A SCAN, AND I HAVE TOLD ALL OF THE DOCTORS THIS." WHEN ADVISED THAT NM WOULD LIKE REASSURANCE AND THAT HE NEEDED TO TRY TO VOID, HE AGREED THAT HE FELT HE LIKELY WOULD VOID AFTER THERAPY, AND HE WOULD LET US KNOW. ALL ABOVE NOTED TO FCO GARNER NP, WHO WILL ALSO DISCUSS THE RISKS OF BLADDER RUPTURE IF MAKING URINE AND NOT VOIDING, AND RENAL CONCERNS WELL. PT IS ALERT AND ORIENTED, TALKATIVE AND PLEASANT.
--- NOTE | 2021-01-28 13:20 | NUR ---
PT SCHEDULE CHANGED AND RN ASSISTED HIM BACK TO BED AFTER SITTING UP FOR >30 MIN AFTER LUNCH, DUE TO C/O FATIGUE AND BACK PAIN. WHEN TRANSFERRING, NOTED THAT PT'S RLE BUCKLED, BUT OTHERWISE THE STAND-PIVOT TRANSFER WAS MIN TO MOD ASSIST FROM SIT TO STAND AND MIN ASSIST TO LOWER TO THE BED. PT WAS ABLE TO GET HIS LEGS INTO THE BED, AND REQUIRED ASSIST WITH BED MOBILITY TO DUE BACK PAIN. PAIN SUBSIDED SOME AND PT LATER SEEN RESTING WITH EYES CLOSED.
[2021-01-28 20:06] VITALS: BP 116/72
--- NOTE | 2021-01-28 23:55 | NUR ---
ASSUMED CARE OF PT AT 1900. PT IS A&OX4. IS ON 1L OF O2/NC. IS STABLE. IS ABLE TO TURN SELF IN BED. DENIES PAIN. PEG TUBE INTACT. PT HAS VOIDED 650 ML TONIGHT. IS UP WITH 1-2 ASSIST, SLIDE BOARD TO . FALL PRECAUTIONS & HOURLY ROUNDING CONTINUED THIS SHIFT. LABS & VITALS REVIEWED. CALL LIGHT WITHIN REACH. WILL CONTINUE TO MONITOR.
[2021-01-29 08:00] VITALS: BP 123/82
--- NOTE | 2021-01-29 12:24 | NUR ---
Cont with discharge planning as needed. Anticipated dc on 02/09/21
[2021-01-29 13:02] LABS: HEMATOCRIT 42.8 % (42.0-52.0); HEMOGLOBIN 13.8 gm/dL (14.0-18.0); MCH 28.1 pg (26.0-34.0); MCHC 32.4 g/dL (28.0-37.0); MCV 86.7 fL (80.0-100.0); RBC 4.93 mil/uL (4.50-6.00); RDW 16.1 % (10.5-14.5); WBC 6.6 thou/uL (4.0-11.0)
[2021-01-29 13:10] LABS: CALCIUM 8.8 mg/dL (8.5-10.1); CREATININE 0.6 mg/dL (0.7-1.3); MAGNESIUM 1.9 mg/dL (1.8-2.4); POTASSIUM 4.5 mmol/L (3.5-5.1)
--- NOTE | 2021-01-29 16:57 | NUR ---
I have reviewed the documentation by GRACE TARIQ from 01/27/21 to 01/29/21 and I concur with it. JUDITH GILLILAND
[2021-01-29 20:00] VITALS: BP 122/70
--- NOTE | 2021-01-30 01:42 | NUR ---
assumed care approx 1900 evening 01/29. pt lying in bed at change of shift alert and oriented x4, talking on phone. pt in fairly good mood stated he thinks his old roommate may move in with him after discharge. pt on room air with sat 93%. pt denies pain. pt appears to be sleeping soundly. bed alarm on and call light in reach. will continue to monitor.
[2021-01-30 07:15] VITALS: BP 130/94
[2021-01-30 08:50] VITALS: BP 130/94
[2021-01-30 19:27] VITALS: BP 122/83
--- NOTE | 2021-01-31 04:15 | NUR ---
ASSUMED CARE AT 1915 OF 01/30. PATIENT IS A&OX4, DENIES PAIN AND SHORTNESS OF BREATH. BACK ON CONTINUOUS 1L OF O2 VIA NC. PATIENT INDEPENDENTLY USED URINAL IN BED, AND VOIDED 650CC OF DOTTIE COLORED URINE. ABLE TO REPOSITION SELF IN BED. FALL PRECAUTIONS IN PLACE, CALL LIGHT WITHIN REACH. WILL CONTINUE TO MONITOR.
[2021-01-31 07:15] VITALS: BP 136/87
--- NOTE | 2021-01-31 16:08 | NUR ---
Pt care assumed at shift change, report received, assessment done as charted, labs reviewed, vss, PEG tube patent, flushed, no complication noted, poor appetite, no BM in the last 4 days refused stool softener, education given, no c/o pain, groin site with redness, refused Nystatin powder as scheduled, safety precautions maintained, will cont' current therapy.
[2021-01-31 19:52] VITALS: BP 124/83
--- NOTE | 2021-02-01 04:53 | NUR ---
ASSUMED CARE AT 1900 OF 01/31. PATIENT IS A&OX4. APPEARS TO BE IN BETTER SPIRITS HE IS FFELS LIKE HE IS MAKING IMPROVEMENTS IN THERAPY. TOPICAL APPLICATION OF NYASTATIN POWDER PERFORMED. PATIENT VOIDED USING URINAL AT HS, AND HAD A BOWEL MOVEMENT WELL. MINIMAL ASSISST TO TRANSFER TO [facility]. ORAL FLUID INTAKE ENCOURAGED. DENIES PAIN OR SHORTNESS OF BREATH. CONTINUES ON 1L OF O2 VIA NC. FALL PRECAUTIONS IN PLACE, CALL LIGHT WITHIN REACH. WILL CONTINUE TO MONITOR.
--- NOTE | 2021-02-01 18:15 | NUR ---
PT CARE ASSUMED AT SHIFT CHANGE, BEDSIDE REPORT RECEIVED, NO OVERNIGHT ISSUE, ASSESSEMENT DONE CHARTED, LABS REVIEWED, VSS, POOR APPETITE, PEG TUBE PATENT, PT PREFERS TO STAY IN BED, BUT WORKED WELL WITH PT/OT, REMAINS ON 1L OF O2, UNSUCCESSFUL WEANING TO ROOM AIR, SAFETY PRECAUTION APPLIED, SBA WITH GB AND FWW, HOURLY ROUNDS SCHEDULED. WILL CONT' CURRENT THERAPY AND MONITOR FOR CHANGE.
[2021-02-01 19:21] VITALS: BP 116/72
--- NOTE | 2021-02-02 02:16 | NUR ---
ASSUMED CARE AT 1900 OF 02/01. PATIENT IS A&OX4. DENIES PAIN OR SHORTNESS OF BREATH, CONTINUES ON 1L OF VIA NC, KEEPING O2Sat ABOVE 94%. TOPICAL APPLICATION OF NYASTATIN POWDER DONE AT HS. ORAL FLUID INTAKE ENCOURAGED. FALL PRECAUTIONS IN PLACE, CALL LIGHT WITHIN REACH. WILL CONTINUE TO MONITOR.
[2021-02-02 08:00] VITALS: BP 126/86
--- NOTE | 2021-02-02 12:44 | NUR ---
Team meeting, independent upper dressing, lower dressing set up, transfers from raised toilet when fatigued he is min assist. ft 50 up with walker. Friend here today and worked with therapy. Possible will need home oxygen. Noncompliant with skin barrier cream/nystatin. Dc 02/09 to home with home health ( pt, ot, nurse). Will need wheel chair and he will have to get his own walker. Resp therapy to due hs o2 study on Monday and then Thursday 02/08 do sat exercise study.
--- NOTE | 2021-02-02 15:04 | NUR ---
ASSUMED PT CARE AT SHIFT CHANGE, REPORT RECEIVED, PT FOUND SLEEPING IN BED THEN ASSESSEMENT PERFORMED CHARTED, A/O X 4 , VSS, LABS REVIEWED MEDS GIVEN PER MAR, PT TAKES PILLS WHOLE WITH SHAKE, POOR APPETITE, NO BM OR VOIDS ON THIS SHIFT, WORKED WELL WITH PT/OT, REMAINED ON 1L OF O2, IN ORDER TO KEEP O2 SAT > 94 , UNSUCCESSFUL WEANING TO RA, NO RESPIRATORY DISTRESS AT REST, ALL SAFETY PRECAUTIONS MAINTAINED, UP W/1A, GB AND FWW, NO CONCERNS VOICED, NO C/O PAIN, PT APPEARED CALM, COOPERATIVE, GROIN REDNESS PROGRESSING WELL, NO OTHER CONCERNS, WILL CONT' CURRENT THERAPY.
--- NOTE | 2021-02-02 16:28 | NUR ---
I have reviewed the documentation by GAURI TARIQ from 02/01/21 to 02/02/21 and I concur with it. NATE MUHAMMAD
[2021-02-02 19:43] VITALS: BP 117/80
--- NOTE | 2021-02-03 03:10 | NUR ---
ASSUMED CARE AT 1930 OF 02/02. PATIENT IS A&OX4, DENIES PAIN OR SHORTNESS OF BREATH. REMAINS ON 1L OF O2 VIA NC. REFUSED NYASTATION APPLICATION AT . ORAL FLUID INTAKE ENCOURAGED. FALL PRECAUTIONS IN PLACE, CALL LIGHT WITHIN REACH. WILL CONTINUE TO MONITOR.
[2021-02-03 07:15] VITALS: BP 132/87
--- NOTE | 2021-02-03 14:30 | NUR ---
ASSUMED CARE AT O700. PATIENT IS ALERT AND ORIENTED X4. PATIENT CASTANO'S, BREAKER OPERATOR ARE EQUAL. LUNGS ARE CLEAR AND DEMINISHED. PATIENT CONTINUES ON 02 AT 1 PRE N/C. ABD IS SOFT WITH BSX4. G.T. IS PATENT AND INTACT. PATIENT HAS NOT VOIDED TODAY. FALL AND SAFETY PROTOCOLS IN PLACE. C/O RIGHT BACK PAIN. MEDICATED WITH PRN PAIN MED AND PATCH. CONTINUES TO PROGRESS SLOWLY TOWARDS D/C GOALS. WILL CONTINUE TO MONITER.
--- NOTE | 2021-02-03 16:36 | NUR ---
I have reviewed the documentation by Cyril Chavez from 02/03/21 to 02/03/21 and I concur with it. MARIA TOWNSEND
[2021-02-03 19:48] VITALS: BP 121/75
[2021-02-04 08:00] VITALS: BP 111/73
[2021-02-04 19:20] VITALS: BP 121/79
--- NOTE | 2021-02-05 04:35 | NUR ---
02-03-21 CARE TRANSFERRED 1899. PT AAOX4, VSS, RR EVEN AND NONLABORED ON RA, WHEN ASKED PT REPORTED "I DON'T ALWAYS NEED IT". PT LUNGS CLEAR, HT RR, ABD SOFT AND ACTIVE. PT DENIES PAIN. PT REFUSES NYSTATIN POWDER. PT REPORTED HE IS SELF RELIANT.
--- NOTE | 2021-02-05 04:42 | NUR ---
02-04-21 CARE TRANSFERRED 1899. PT AAOX4, VSS, RR EVEN AND NONLABORED ON 1L 02 NC. PT LUNGS CLEAR, HT RR, ABD SOFT AND ACTIVE. FLUIDS ENCOURAGED. PT DENIES PAIN AND REFUSES NYSTATIN POWDER.
[2021-02-05 07:15] VITALS: BP 121/81
[2021-02-05 19:32] VITALS: BP 128/86
--- NOTE | 2021-02-06 05:19 | NUR ---
ASSUMED PT CARE THIS PM. PT IS ALERT AND ORIENTED X4. PT HAS AN OPNE SORE FROM THE REMOVAL OF PEG TUGE WITH DRSG WHICH IS D/C/I. PT DID NOT C/O PAIN OR SOB. PT IS ON 1L OF O2 VIA NC. PT DID NOT VERBALIZE ANY CONCERNS. VS ARE WITHIN NORMAL RANGE AND MEDS WERE GIVEN PER EMAR ORDERS. FALL PRECAUTIONS IN PLACE. WILL CONTINUE TO MONITOR.
[2021-02-06 08:00] VITALS: BP 134/80
--- NOTE | 2021-02-06 16:42 | NUR ---
Patient care resummed, patient located in bed lying in a low fowlers position. Patients VSS, on 1L O2. Lung sounds clear and unlabored, abdomen is soft:nondistended with bowel sounds present *4, LBM:02/06/21. Patient has dressing where PEG tube was removed and is D/C/I. Reddness noted to groin area, with Nystain powder refused this AM. Patient is A&O*4, uses a urinal for bladder elimination. Patient refused PT today, and was very non-compliant with staff throughout the day. Patient stated "I'm being discharged Monday either way, so I don't care." Patient has been resting comfortably, fall precautions are in place. Will continue to monitior for safety.
[2021-02-06 20:00] VITALS: BP 129/82
--- NOTE | 2021-02-07 04:25 | NUR ---
02-06-21 CARE TRANSFERRED 1899. PT AAOX4, VSS, RR EVEN AND NONLABORED ON ON . PT LUNGS CLEAN, HT RR, ABD SOFT AND ACTIVE. PT J-TUBED REMOVED AND CLOSURE SLIGHT REDNESS, NO S/S OF INFECTION. PT REFUSED NYSTATIN APPLICATION.
[2021-02-07 07:15] VITALS: BP 120/80
--- NOTE | 2021-02-07 10:33 | NUR ---
ASSUMED CARE OF PT AT 0700 THIS MORNING. PT IS A/OX4 AND WAS SLEEPING WHEN ENTERING ROOM. ASSESSMENTS NOTED IN CHART AND OTHERWISE UNREMARKABLE. PEG TUBE PATENT AND FLUSHED WELL. PT REFUSED LIDOCAINE PATCH BUT TOOK REST OF HIS MEDS WITH HIS SHAKE. FALL PRECAUTIONS ARE IN PLACE. CALL LIGHT AND OTHER NEEDS ARE IN REACH. MEDS AND TX GIVEN NEEDED AND SCHEDULED. PHYS THPY AND OT WORKING WITH PT. WILL MONOITOR AND NOTE ANY CHANGES.
[2021-02-07 19:40] VITALS: BP 116/75
--- NOTE | 2021-02-08 00:12 | NUR ---
PT ALERT AND ORIENTED X 4. PEG TUBE SITE DRESSING C/D/I. PT REFUSED NYSTATIN POWDER AT HS. NOCTURNAL DESAT STUDY IN PROGRESS. ON RA AT THIS TIME. PT DENIES PAIN OR DISCOMFORT. PT AWAKE ON HOURLY ROUNDS.
[2021-02-08 07:15] VITALS: BP 123/80
--- NOTE | 2021-02-08 12:02 | NUR ---
PT ALERT AND ORIENTED TIMES FOUR, WITH BLUNTED AFFECT. VSS. PT DENEIS PAIN/SOA. PT WORKED WELL WITH PT/OT. PT TOLERATES MEDS AND MEALS. PT EXCITED FOR POSSIBLE PLANS TO DISCHARGE TOMORROW.
[2021-02-08] MEDS ORDERED: NYAMYC15 GM TOP (15:03)
[2021-02-08] MEDS ORDERED: MIRALAX17 GM PO (15:03)
[2021-02-08] MEDS ORDERED: VENTOLIN HFA 1818 GM INH (15:03)
[2021-02-08] MEDS ORDERED: FOLIC ACID1 MG PO (15:03)
[2021-02-08] MEDS ORDERED: TOPROL XL25 MG PO (15:03)
[2021-02-08] MEDS ORDERED: ZYRTEC10 M2 PO (15:03)
[2021-02-08 16:21] VITALS: BP 123/80
--- NOTE | 2021-02-08 16:28 | NUR ---
Spoke with [place] transitions team stanislav # [phone] ext [phone]. [facility] and his will chair. Kenn has already bought a walker. Me will call back to let us know if the wheel chair can be delivered before dc 02/09/21 1300. portable o2 tank will be brought here and then home o2 unit will be set up at his house after he gets home. [facility] has accepted. Medication will need to be faxed to [phone] [place] o2 question can call [phone].
[2021-02-08 20:14] VITALS: BP 118/78
--- NOTE | 2021-02-09 01:36 | NUR ---
PT ASSESSMENT COMPLETED AND VSS. MEDS GIVEN ORDERED AND WELL TOLERATED. FALL PRECAUTIONS IN PLACE. PT SAYS THAT HE IS HOPING THAT HE DOES OK AT HOME. HE IS A LITTLE WORRIED ABOUT LEAVING. PT DENIES NEEDS. RESTING WELL. WILL CONTINUE TO MONITOR FREQUENTLY.
[2021-02-09 07:15] VITALS: BP 112/79
[2021-02-09] MEDS ORDERED: XARELTO20 MG PO (09:51)
[2021-02-09] MEDS ORDERED: ZINC-22050 MG PO (09:52)
[2021-02-09 11:23] VITALS: BP 123/80
--- NOTE | 2021-02-09 11:32 | NUR ---
cont with dc home today with [facility], wheelchair and home o2 tank will be delivered prior to dc today around 1300. [facility],
--- NOTE | 2021-02-09 12:17 | NUR ---
ASSUMED CARE AT 0700. PATIENT IS ALERT AND ORIENTED X4. PATIENT CASTANO'S GIRPS ARE EQUAL. LUNGS ARE ARE CLEAR AND DEMINISHED. 02 AT 1L PER N/C . ABD IS S0FT WITH BSX4. PATIENT VOIDS Q OTHER DAY. POOR APPETITE. REFUSES MEDS. NO IV. FALL AND SAFETY PROTOCOLS IN PLACE. DENIES PAIN. PATIENT IS UP WITH ASSIST OF 1-2 STAFF WITH GAIT BELT AND WALKER. W/C AND O2 DELIVERED TO PATIENTS ROOM. WILL CONTINUE TO MONITER.
--- NOTE | 2021-02-09 13:53 | NUR ---
PATIENT GIVEN D/C INSTRUCTIONS. PATIENT VERBALIZED UNDERSTANDING OF D/C INSTRUCTIONS. PATIENT STATED " I PROBABLLY WILL ONLY TAKE XERALTO. MEDS SEND TO [facility] F/U WITH PCP IN 2 WEEKS. PATIENT IS MOD/ASSIST FROM BED TO W/C AND W/C TO CAR. LEFT UNIT IN GOOD CONDITION WITH ALL OF HIS BELONGINGS.
== END 2021-02-09 14:00 | disposition home health service (06) | DRG 91 ==
PROVIDERS: Nurse Practitioner; Nurse Practitioner Family; ADMIT Physical Medicine & Rehabilitation; ATTEND Physical Medicine & Rehabilitation
DX: G72.81 Critical illness myopathy (principal); I26.99 Other pulmonary embolism without acute cor pulmonale; J96.21 Acute and chronic respiratory failure with hypoxia; J15.212 Pneumonia due to Methicillin resistant Staphylococcus aureus; E43 Unspecified severe protein-calorie malnutrition; R13.10 Dysphagia, unspecified; I10 Essential (primary) hypertension; E66.9 Obesity, unspecified; E11.9 Type 2 diabetes mellitus without complications; G31.84 Mild cognitive impairment of uncertain or unknown etiology; F41.9 Anxiety disorder, unspecified; G47.33 Obstructive sleep apnea (adult) (pediatric); F32.9 Major depressive disorder, single episode, unspecified; F43.20 Adjustment disorder, unspecified; M25.561 Pain in right knee; Z68.34 Body mass index [BMI] 34.0-34.9, adult; Z93.1 Gastrostomy status; Z88.8 Allergy status to other drugs, medicaments and biological substances; Z93.0 Tracheostomy status; Z86.718 Personal history of other venous thrombosis and embolism
CPT/HCPCS: 10112